=== PATIENT | female | born 1980 | race Hispanic/Latino ===

== ENCOUNTER 2019-08-21 13:34 | Emergency (ER) | payer BC ==
--- OUTSIDE RECORDS SUMMARY | 2019-08-21 13:36 | XMS REPORT ---
:1980 Author Organization [facility] Address [address] [place] [address] Dr. Hinojosa [address] [place] [id number] Care Team Providers Name Role Phone Unavailable Unavailable Unavailable Problems This patient has no known problems. Allergies, Adverse Reactions, Alerts This patient has no known allergies or adverse reactions. Medications This patient has no known medications.
--- OUTSIDE RECORDS SUMMARY | 2019-08-21 13:36 | XMS REPORT | Summary of Care ---
:1980 Author Organization [facility] Address [address] [place] [id number] Care Team Providers Name Role Phone Zoe Suazo Primary Care Provider Reason for Visit Reason Comments Care (Routine) Status Reason Specialty Diagnoses / Referred By Referred To Procedures Contact Contact New Request OB Satellites Diagnoses (normal spontaneous vaginal delivery) [place], Procedures DISCHARGE FOLLOW-UP: [facility] Pippa Peña CNM [address] [place] [address] Encounter Details Date Type Department Care Team Description 02/15/2019 Routine [facility]- Zoe Suazo care and examination of lactating mother (Primary Dx); Visit TAMIR Laurent Status post tubal ligation; [address] [place], [place] [id number] [place], [place] [phone] Allergies Active Allergy Reactions Severity Noted Date Comments No Known Allergies 08/15/2005 documented as of this encounter (statuses as of 02/15/2019) Medications Medication Sig Dispensed Refills Start Date End Date Status SERTraline (ZOLOFT) Take 50 mg by 0 Active 50 mg tablet mouth daily. VIT Take by 0 Active [id number] AC mouth. ORAL ibuprofen 600 mg Take 1 tablet 60 tablet 1 01/25/2019 02/15/2019 Discontinued tabletIndications: by mouth (normal every 6 (six) spontaneous vaginal hours as delivery) needed for Pain (scale 1-3) or Pain (scale 4-6) (Pain). Take with food or milk. HYDROcodone-acetami Take 1 tablet 10 tablet 0 01/25/2019 02/15/2019 Discontinued nophen 5-325 mg by mouth tabletIndications: every 6 (six) Status post tubal hours as ligation needed for Pain (scale 7-10). documented as of this encounter (statuses as of 02/15/2019) Active Problems Problem Noted Date anemia 02/15/2019 Hematuria, unspecified type 11/01/2018 Congenital renal anomaly 11/01/2018 Multiparity 11/01/2018 Status post tubal ligation 11/01/2018 Boil of buttock 10/29/2018 History of abnormal cervical Pap smear 06/12/2018 Overview: Followed by Dr. Horner for all paps, just seen early May for last follow up with normal pap in 05/2018 History of kidney disease 06/12/2018 Overview: H/O renal surgery as a child, reports left kidney with 80% function, recurrent kidney stones, last requiring surgery in 2015, h/o recurrent UTI in previous pregnancies documented as of this encounter (statuses as of 02/15/2019) Resolved Problems Problem Noted Date Resolved Date (normal spontaneous vaginal delivery) 01/25/2019 02/15/2019 Single live 01/25/2019 02/15/2019 39 weeks gestation of 01/24/2019 02/15/2019 Labor and delivery indication for care or intervention 01/24/2019 02/15/2019 Blurry vision 12/14/2018 02/15/2019 Cramping affecting , antepartum 12/14/2018 02/15/2019 Depression affecting in third trimester, 11/21/2018 02/15/2019 antepartum Poor weight gain of , third trimester 11/15/2018 02/15/2019 Depression affecting in second trimester, 11/01/2018 02/15/2019 antepartum AMA (advanced maternal age) multigravida 35+, unspecified 11/01/20182018 trimester Poor weight gain of , second trimester 11/01/2018 02/15/2019 Urinary tract infection in mother during first trimester of 06/13/20182018 Elderly multigravida in first trimester 06/12/2018 11/15/2018 Supervision of high risk , antepartum 06/12/2018 02/15/2019 documented as of this encounter (statuses as of 02/15/2019) Immunizations Name Administration Dates Next Due TDAP (ADACEL) VACCINE 11/15/2018 documented as of this encounter Social History Tobacco Use Types Packs/Day Years Used Date Former Smoker Cigarettes Quit: 2007 Smokeless Tobacco: Never Used Alcohol Use Drinks/Week oz/Week Comments No Sex Assigned at Date Recorded Not on file Job Start Date Occupation Industry Not on file Not on file Not on file Travel History Travel Start Travel End No recent travel history available. documented as of this encounter Last Filed Vital Signs Vital Sign Reading Time Taken Comments Blood Pressure 117/79 02/15/2019 11:08 AM CDT Pulse 101 02/15/2019 11:08 AM CDT Temperature 36.4 C (97.6 F) 02/15/2019 11:08 AM CDT Respiratory Rate 16 02/15/2019 11:08 AM CDT Oxygen Saturation - - Inhaled Oxygen Concentration - - Weight 73.9 kg (163 lb) 02/15/2019 11:08 AM CDT Height 152.4 cm (5') 02/15/2019 11:08 AM CDT Body Mass Index 31.83 02/15/2019 11:08 AM CDT documented in this encounter Patient Instructions Patient InstructionsAnna Bernard RN - 02/15/2019 10:45 AM CDT After a Vaginal After having a baby, your body may be very tired. It can take time to recover from a vaginal delivery. You may stay in the hospital or center from 1 to 4 days.In some cases, you may be able to go home the same day. Right after the delivery Your temperature and blood pressure will be taken until they are stable. A nurse or other healthcareprovider will observe you as you rest. You may have afterbirth pains. These are cramps caused by theuterus shrinking. Sanitary pads are used to soak up the discharge of the uterine lining. To make sure that you arent bleeding too much, the pad will be checked. And the firmness of your uterus will be checked. To do this, a nurse will gently push down on your stomach. If you had anesthesia, youll be watched closely until you can feel and move your toes. If you have perineal pain (pain between the vagina and anus) , an ice pack can help. care While still in the hospital or center, youll learn how to hold and feed your baby. You willalso be given instructions on how to care for your baby. This includes bathing and feeding. Preparing to go home You may be anxious to go home as soon as possible. Before you and your baby go home, a healthcare provider will check to be sure you are healthy enough to take care of your baby and yourself. Youre ready to go home when: You can walk to the bathroom and use the bathroom without help. You can eat solid food and swallow pills (if needed). You have no sign of infection or other health problems, including fever. You have adequate pain control. Your bleeding isn't excessive. You are able to care for your and are emotionally stable. Before leaving the hospital or center, youll be given written instructions for home self-care after vaginal delivery. Be sure to follow these instructions carefully. If you have questions or concerns, talk about them now. If you have stitches You may have received stitches in the skin near your vagina. The stitches might have closed an episiotomy (an incision that enlarges the opening of the vagina) . Or you may have needed stitches to repair torn skin. Either way, your stitches should dissolve within weeks. Until then, you can help reduce discomfort, aid healing, and reduce your risk of infection by keeping the stitches clean. These tips can help: Gently wipe from front to back after you urinate or have a bowel movement. After wiping, spray warm water on the area. Or you can have a sitz bath. This means sitting in a tub with a few inches of water in it. Then pat the area dry or use a hairdryer on a cool setting. Do not use soap or any solution except water on the area. You can take a shower unless told not to. Change sanitary pads at least every [address] cold or heat packs on the area as directed by your healthcare providers or nurses. Keep a thin towel between the pack and your skin. Sit on firm seats so the stitches pull less. follow-up Schedule a follow-up exam with your healthcare provider for about 6 weeks after delivery. During this exam, your uterus and vaginal area will be checked. Contact your healthcare provider if you think you or your baby are having any problems. When to call your healthcare provider Call your healthcare provider right away if you have: A fever of 100.4F (38.0C) or higher Bleeding that needs a new sanitary pad after an hour, or large blood clots Pain in your vagina that gets worse and isn't relieved with medicine Swelling, discharge, or increased pain from vaginal tear or episiotomy Burning, pain, red streaks, or lumpy areas in your breasts that may be accompanied by flu-like symptoms Cracks, blisters, or blood on your nipples Burning or pain when you urinate Nausea or vomiting Dizziness or fainting Feelings of extreme sadness or anxiety, or a feeling that you dont want to be with your baby Belly pain that isnt relieved with medicine Vaginal discharge that has a bad odor No bowel movement for 5 days Painful urination, or inability to control urination Redness, warmth, or pain in the lower leg Chest pain Date Last Reviewed: 06/09/201719996675-1601 [employer]. [address] [place] [address]. All rights reserved. This information is not intended as a substitute for professional medical care. Always follow your healthcare professional's instructions. How to Breastfeed Babies use their lips, gums, and tongue to take milk from the breast (suckle). Your baby is born with an instinct for suckling. But it takes time for you and your baby to learn how to breastfeed. Thereare steps you can take to support your babys natural instincts. Lrkm-ax-azgr If possible, hold your baby bare against your skin (rppy-sr-tutm) just after giving and for a few hours after. You can also continue to do this in the first few weeks after . How often should I feed my baby? Nurse your 8 to 12 times every 24 hours. Feed your baby whenever he or she shows signs of hunger. When your baby is hungry, he or she will appear more awake and might root. Rooting means turning his or her head toward you when you stroke your babys cheek. Your baby might also make a suckingsound or suck on his or her hand. Crying is a late sign of hunger. If your baby is crying, it may behard for him or her to calm down to breastfeed.Infants will often eat at irregular times. But feedings will usually become more regular over time. Sometimes your baby might eat several times in a row(cluster feeding) and then take a break. Ifyour baby seems sleepy or too fussy to nurse,undress him or her and place your baby bare against your skin.Don't keep your baby swaddled tightly. This may keep him or her too sleepy to feed. Change which breast you offer first with each feeding. For example, if you started nursing on the right side with the last feeding, offer the left side first with this feeding. Always offer the other breast after your baby stops nursing on the first side. Ask your baby's healthcare provider about waking the baby for feeding. You may need to wake your baby and offer to nurse if it has been 4 hours since your baby 's last feeding. Offering your breast Hold your breast with your thumb on top and fingers underneathin a loose supervisor modern languages. Gentlystrokeyour nippleon your babys lower lip.When you see your baby open his or her mouth wide, quickly bring the baby to your breast. Latching on The way your baby connects with the breast is called the latch. When your baby attaches, you should see more of the darker skin around the nipple (areola) above the baby's upper lip than below the lower lip. The front of your baby's entire body should be touching you. Your baby's nose and chin should be against the breast. Your baby's cheeks should be full and not sinking inward. You should be able to see your baby's lips. They should be slightly flared outward. As your baby suckles, his or her jaw should open wide. It should not be "munching" as if chewing. Listen for swallowing. It should not hurt when your baby latches on and suckles. If it does, try releasing the latch and starting over. Releasing the latch Let your baby nurse until satisfied. In most cases, when your baby is finished nursing, he or she will let go on his or her own. This tells you that your baby is done feeding on that breast. But you may need to release the latch sooner if you feel pain or for some other reason. To do this, slip your finger into the corner of your baby's mouth. You should feel the suction break. Only when the seal is broken, move your baby off your breast. Don't take the baby off your breast until you've felt a decrease in suction. Burping your baby Breastfed babies don't need to burp as much as bottle-fed babies. Bottles flow faster, and babies tend to swallow more air.Tryto burp your baby after each breast: Hold the baby at your upper chest or slightly over your shoulder. Gently rub or pat the babys back. Or hold the baby sitting up on your lap. Support your baby's head and chest in front and in back.Slowly rock your baby back and forth. Dont worry if your baby doesn't burp. He or she may not need to. Date Last Reviewed: 09/07/201619998514-9026 [employer]. [address] [place] [address]. All rights reserved. This information is not intended as a substitute for professional medical care. Always follow your healthcare professional's instructions. Understanding Depression Youve just had a baby. You expected to be excited and happy. But instead you find yourself cryingfor no reason. You may have trouble coping with your daily tasks. You feel sad, tired, and hopeless most of the time. You may even feel ashamed or guilty. But what youre going through is not your fault and you can feel better. Talk to your healthcare provider. He or she can help. What is depression? Depression is a mood disorder that affects the way you think and feel. The most common symptom is a feeling of deep sadness. You may also feel as if you just cant cope with life. Other symptoms include: Gaining or losing a lot of weight Sleeping too much or too little Feeling tired all the time Feeling restless Crying a lot Having too little or too much appetite. Withdrawing from friends and family Having headaches, aches and pains, or stomach problems that won't go away. Fears of harming your baby Lack of interest in your baby Feeling worthless or guilty No longer finding pleasure in things you used to Having trouble thinking clearly or making decisions Thinking about or suicide Depression after childbirth You may be weepy and tired right after giving . These feelings are normal. Theyre sometimes called the baby blues. These blues go away after 1 to 2 weeks. However, (meaning after ) depression lasts much longer and is more severe than the "baby blues." It can make you feel sad and hopeless. You may also fear that your baby will be harmed and worry about being a bad mother. What causes depression? The exact cause of depression is unknown. Changes in brain chemistry or structure are believed to play a big role in depression.It may be due to changes in your hormones during and after childbirth. You may also be tired from caring for your baby and adjusting to being a mother. All thesefactors may make you feel depressed. In some cases, your genes may also play a role. Depression can be treated There are many ways to treat depression. Talking to your healthcare provider is the firststep toward feeling better. When to call your healthcare provider Call your healthcare provider if you: Cry for no clear reason Have trouble sleeping, eating, and making choices Questions whether you can handle caring for a baby Have intense feelings of sadness, anxiety, or despair that prevent you from being able to do yourdaily tasks Resources National [place] of Mental Ytwmxs404-546-2699nmq.nimh.nih.gov National [place] on Mental Oxdeomd012-869-2437hjw.thelma.org Mental Health Efuaedo136-225-6989cfd.[facility].org National Suicide Dixybrz209-686-8404 (800-SUICIDE) Date Last Reviewed: 01/07/201719991289-1164 [employer]. [address] [place] [address]. All rights reserved. This information is not intended as a substitute for professional medical care. Always follow your healthcare professional's instructions. How to Bottle-Feed Newborns need nutrition and plenty of loving2 things you can supply while bottle-feeding. Both breastmilk and formula can be given to your baby in a bottle. Be sure to place the nipple on the tongue and well into your baby's mouth. Safety tip:Never heat breastmilk or formula in a microwave. This can result in uneven heating. Thehot formulamight burn your baby's mouth. Instead, warm the bottle by putting it in a bowl of warm (not hot) water. Using hot water to heat formula or breastmilk can burn your baby's mouth or throat. Test the temperature of theformulaby dripping a few dropson your wrist. Make sure it is a warmtemperature before giving it to your baby. Bottle care No matter if you use breastmilk or formula, the bottles, nipples, and tools you use to get the formula ready must be clean. Below are suggestions for bottle care, but talk with your healthcare provider about how to care for bottles: Wash your hands before you mix formula, fill a bottle, or offer a bottle. Do this every time. If soap and water aren't available, use an alcohol-based hand white work cleaner. Clean glass bottles and nipples in the model photographers'. Use the hot water setting with a hot drying cycle. Or wash the bottles and nipples with hot, soapy water. Be sure to rinse both completely. Boil them for 5 minutes and cool them. If you use plastic bottles with disposable liners, you will still need to make sure the bottles and nipples are clean. Store clean, unused bottles and nipples with the nipple end facing into the bottle (inverted). Put the bottle caps on the bottles to keep the nipples clean. Facts on formula Baby formulais made from cows milk or soybeans.Formula made from cows milk is more commonly used. But you may need to use formula made from soybeans. Your babys healthcare provider may tell you to use soybean-based formula if your family has a history ofallergiesor your baby has certain health conditions. All formula used should include iron. Telha-sp-szze formula Hknlp-ta-rfez formula is the easiest to use, but it also costs the most.Brand names cost more thanstore-brand formulas because these companies spend more money on advertising. Pour the desired amount of xkayw-qt-wtje formula into the baby's clean bottle. Once you open the container of formula, it must be stored in the refrigerator. It can only be stored for 24 hours. If not refrigerated, the formula is only safe at room temperature for 1 hour. After that, it mustbe thrown out. You can fill bottles with the formula up to 24 hours ahead of time.You must keep them refrigerated untilyou use them. If your baby does not finish drinking a bottle within 2 hours, throw away the unfinished formula. Ask your healthcare provider how much formula to offer your baby at each feeding. Concentrated liquid formulas Concentrated liquid formulas need to be mixed with water before using. Follow thedirectionson the canclosely. Using too much or too little water may harm your baby.Follow these tips: Use water that has been boiled and then cooled. Pour the whole can of concentrated liquid formula into a clean pitcher. Fill the can with water to the top and add it to the pitcher. Mix well. Pour the desired amount of formula into your baby's clean bottle. Store the pitcher of mixed formula in the refrigerator. Keep it for only 24 hours. If not refrigerated, the formula is only safe at room temperature for 1 hour. After that, it must be thrown out. Ask your healthcare provider how much formula to offer your baby at each feeding. Concentrated powder formulas Powdered formulas must be mixed with water before using. Liquid formulas have no germs (sterile). But powdered formula can get germs (bacteria) in it when you make it or when you store it. Follow thesetips to protect your baby from getting sick from these germs: Concentrated powder formulas need to be mixed with clean, boiled water before using. Wash and dry the top of the formula can before you open it. Make sure the can packaging inspector, spoons, scoops, and other tools you use to make the formula are clean. Use very hot water to mix with the formula powder. This means water that is 158F (70C). Dont mix the formula with water until right before you are going to feed your baby. Add the right amount of hot water to the bottle. Then add the right amount of powdered formula. Its important to add the water to the first. Adding the formula first may make it too strong and cause diarrhea. Mix the water and formula well. Test the temperature of the mixed formula by shaking a few drops on your wrist. If it is too hot,cool it by running the bottle under cool tap water. Or put the bottle in an ice bath. Make sure the cooling water does not get into the bottle or on the nipple. If you dont plan to use the prepared formula right away, put it in the refrigerator and use itwithin 24 hours. It is important to keep the dry powder in the formula can clean to prevent bacteria from growing. Ask your healthcare provider how much formula to offer your baby at each feeding. Holding baby and bottle To hold your baby and feed him or her with a bottle, follow these tips: Cradle your baby in your arm, holding your babys head slightly higher thanhis or her bottom. Using the correct position can lower the chance that your baby will choke. Stroke your babyslower lip. When your babys mouth opens, place the nipple on the tongueand feel him or her pull the nipple into the mouth. Tip the bottle so the nipple fills with milk. Forsafety'ssake, never prop the bottle.Your baby can choke if you leave him or her alone with a propped bottle. Feeding your infant can be a time of bonding and building trust. Hold your baby close to your body, make eye contact, and talk to your baby. Don't let your baby fall asleep while sucking on a bottle. This can lead to tooth decay when he or she is older. If your baby seems hungry but isn't eating well, you can try a different shaped nipple. You might also check the nipple opening. Some babies prefer a faster flow of milk. They can get frustrated when the flow is too slow. If your baby is gagging and choking, you might need a nipple with a smaller hole. The smaller hole slows the flow. [place] with bottle nipples. Let your baby choose which bottle nipple is best for him or her. Burping your baby It is easy for babies to swallow air while bottle-feeding. Burping helps your baby get rid of that air.Tips on burping your baby include: Burp your babywhen he or she acts restless, tries to turn away from the nipple, or slows his orher sucking.This is usually after eating every 1/2 to 1 ounce of formula and when he or she is finished feeding. Your baby can be burped sitting up while you hold the babys jaw, lying face down across your lap, oruprightwith his or her belly against your shoulder. Feeding cues Don't wait for your baby to cry before feeding. Crying is too late of a sign that your baby is ready to eat. Your baby is ready to feed when your baby flutters his or her eyes and moves his or her hands to the mouth as he or she wakes up. Don't force your baby to finish the bottle. This can lead to obesity. Respect cues that he or she is finished. These include letting go of the bottle, turning his or her head away, looking sleepy, or stopping feeding. Offer a pacifier if your baby acts like he or she wants to suckle after finishing the amount of formula your healthcare provider recommended. Babies enjoy sucking. But bottle-fed babies may feed so fast that they dont get enough suckling time. Date Last Reviewed: 09/07/201619995823-6242 [employer]. [address] [place] [address], [place] [address]. All rights reserved. This information is not intended as a substitute for professional medical care. Always follow your healthcare professional's instructions. documented in this encounter Progress Notes Zoe Suazo FNP - 02/15/2019 10:45 AM CDT Chief complaint: Chief Complaint Patient presents with Care Shamika Smith is a 38 year old, , /White female. Patient's last menstrual period was 05/03/2018 (exact date). Patient presents for her visit. She is 3 week(s) status-post a normal vaginal delivery.. Since discharge, lochia has decreased. Lochia described as normal and physiologic. She is not . She reports no complaints in the bilateral breast(s). Patient denies pain. Patient has not attempted self treatment. She reports that she currently engages in sexual activity and has had partners who are Male. She reports using the following method of control/protection: BTL. Perineal repair: none Infants course complicated? no The patients course was without complication. The patients hospital course was without complication. Post- hemoglobin before leaving hospital: HGB Date Value Ref Range Status 01/26/2019 9.9 (L) 11.6 - 15.0 g/* Final 11/10/2010 14.2 11.5 - 15.5 G/* Final complications: none Patient lives with with baby and with older child(juan). OB History T2 L4 SAB0 TAB1 Ectopic0 Multiple0 Live Births4 Name of Baby 1: Not recorded Date: 1996 GA: 8w0d Delivery: Not recorded Apgar1: Not recorded Apgar5: Not recorded Living: Not recorded Name of Baby 2: Not recorded Date: 02/02/04 GA: 40w0d Delivery: Normal Spontaneous Vaginal Apgar1: Not recorded Apgar5: Not recorded Living: Living Name of Baby 3: Not recorded Date: 03/22/06 GA: 40w0d Delivery: Normal Spontaneous Vaginal Apgar1: Not recorded Apgar5: Not recorded Living: Living Name of Baby 4: Not recorded Date: 06/09/10 GA: 40w0d Delivery: Normal Spontaneous Vaginal Apgar1: Not recorded Apgar5: Not recorded Living: Living Name of Baby 5: ALVAREZ SMITH Date: 01/24/19 GA: 39w2d Delivery: Normal Spontaneous Vaginal Apgar1: 9 Apgar5: 9 Living: Living Depression Scale: I have been able to laugh and see the funny side of things: As much as I always could I have looked forward with enjoyment to things: As much as I ever did I have blamed myself unnecessarily when things went wrong: No, never I have been anxious or worried for no good reason: No, not at all I have felt scared or panicky for no good reason: No, not at all Things have been getting on top of me: No, I have been coping as well as ever I have been so unhappy that I have had difficulty sleeping: Not at all I have felt sad or miserable: No, not at all I have been so unhappy that I have been crying: No, never The thought of harming myself has occurred to me: Never Total: 0 Immunization History Administered Date(s) Administered TDAP (ADACEL) VACCINE 11/15/2018 Pended Date(s) Pended Rho (d) Immune Globulin 01/25/2019 Histories OB History Para Term AB Living 5 4 2 1 4 SAB TAB Ectopic Multiple Live Births 1 0 4 # Outcome Date GA Lbr William/2nd Weight Sex Delivery Anes PTL Lv 5 Term 01/24/19 39w2d 7 lb 1.6 oz (3.22 kg) M NORMAL SPONT None N PIERO 4 Para 06/09/10 40w0d 8 lb 2 oz (3.685 kg) F NORMAL SPONT IV narcotic Y PIERO 3 Term 03/22/06 40w0d 7 lb 9 oz (3.43 kg) M NORMAL SPONT IV narcotic N PIERO 2 Para 02/02/04 40w0d 7 lb (3.175 kg) M NORMAL SPONT IV narcotic N PIERO 1 TAB 1996 8w0d Past Medical History: Diagnosis Date Anxiety Depression 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 Horner anemia 02/15/2019 Family History Problem Relation Age of Onset Asthma Mother Depression Mother Depression Father Diabetes Father Psychiatry Father Breast Cancer Paternal Grandmother Family Status Relation Name Status Mo (Not Specified) Fa (Not Specified) PGMo (Not Specified) Past Surgical History: Procedure Laterality Date ERCP,W/DESTRUCTION,LITHOTRIPSY,STONE 2015 OVARIAN CYSTECTOMY 2016 HI ANESTH,KIDNEY,PROX URETER SURG Left 2016 blockage from stone/infection/surgery to relieve infection TUBAL LIGATION N/A 01/25/2019 Surgeon: Nini Pulido MD; Location: Labor and Delivery - [place] Social History Socioeconomic History Marital status: Spouse name: Not on file Number of children: Not on file Years of education: Not on file Highest education level: Not on file Occupational History Not on file Social Needs Financial resource strain: Not on file Food insecurity: Worry: Not on file Inability: Not on file Transportation needs: Medical: Not on file Non-medical: Not on file Tobacco Use Smoking status: Former Smoker Types: Cigarettes Last attempt to quit: 2007 Years since quittin.6 Smokeless tobacco: Never Used Substance and Sexual Activity Alcohol use: No Drug use: No Sexual activity: Yes Partners: Male control/protection: None Lifestyle Physical activity: Days per week: Not on file Minutes per session: Not on file Stress: Not on file Relationships Social connections: Talks on phone: Not on file Gets together: Not on file Attends taoist service: Not on file Active member of club or organization: Not on file Attends meetings of clubs or organizations: Not on file Relationship status: Not on file Intimate partner violence: Fear of current or ex partner: Not on file Emotionally abused: Not on file Physically abused: Not on file Forced sexual activity: Not on file Other Topics Concern Not on file Social History Narrative Currently feels safe at home No cats Social History Substance and Sexual Activity Sexual Activity Yes Partners: Male control/protection: None Labs No new labs, I have reviewed the patient's labs. and Admission on 01/24/2019, Discharged on 01/26/2019 Component Date Value HBsAg 01/24/2019 Negative HBsAg Semi-Quantitative 01/24/2019 0.18 Syphilis IgG/IgM 01/24/2019 Non-reactive ABO & RH 01/24/2019 A POSITIVE IAT 01/24/2019 Negative VENOUS BASE EXCESS, CORD 01/24/2019 -3.6 VENOUS PH, CORD 01/24/2019 7.34 VENOUS PC02, CORD 01/24/2019 42 VENOUS PO2, CORD 01/24/2019 25 VENOUS BICARBONATE, CORD 01/24/2019 22 BASE EXCESS, CORD 01/24/2019 -3.5 AC PH, CORD (BEAKER) 01/24/2019 7.30 PC02, CORD 01/24/2019 48 PO2, CORD 01/24/2019 21 BICARBONATE, CORD 01/24/2019 23 Case Report 01/25/2019 Value:Surgical Pathology Case: [id number] Authorizing Provider: Nini Pulido MD Collected: 2018 0211 Ordering Location: Labor and Delivery ([facility]) Received: 2018 0832 Pathologist: Giovany Smith MD Specimens: A) - FALLOPIAN TUBE, LEFT B) - FALLOPIAN TUBE, RIGHT Final Diagnosis 01/25/2019 Value:This result contains rich text formatting which cannot be displayed here. Clinical Information 01/25/2019 Value: s/p -MPDPS Gross Description 01/25/2019 Value:This result contains rich text formatting which cannot be displayed here. WBC 01/26/2019 12.42* RBC 01/26/2019 3.45* HGB 01/26/2019 9.9* HCT 01/26/2019 31.5* MCV 01/26/2019 91.3 MCH 01/26/2019 28.7 MCHC 01/26/2019 31.4* RDW-SD 01/26/2019 46.2 RDW-CV 01/26/2019 14.1 PLT 01/26/2019 167 MPV 01/26/2019 12.3 NRBC/100 WBC 01/26/2019 0.0 NRBC x10^3 01/26/2019 <0.01 GRAN MAT (NEUT) % 01/26/2019 59.5 IMM GRAN % 01/26/2019 0.50 LYMPH % 01/26/2019 32.9 MONO % 01/26/2019 5.3 EOS % 01/26/2019 1.4 BASO % 01/26/2019 0.4 GRAN MAT x10^3(ANC) 01/26/2019 7.38* IMM GRAN x10^3 01/26/2019 0.06 LYMPH x10^3 01/26/2019 4.09* MONO x10^3 01/26/2019 0.66 EOS x10^3 01/26/2019 0.18 BASO x10^3 01/26/2019 0.05 Routine Visit on 01/16/2019 Component Date Value POCT U SP GRAV 01/16/2019 . POCT PH U 01/16/2019 . POCT U LEUK EST 01/16/2019 . POCT U NIT 01/16/2019 . POCT U PROT 01/16/2019 trace POCT U GLU 01/16/2019 neg POCT U KETONE 01/16/2019 . POCT U UROBILI 01/16/2019 . POCT U BILI 01/16/2019 . POCT U BLD 01/16/2019 . Radiology No new radiology. Allergies Shamika is allergic to nka [no known allergies]. Medications Shamika has a current medication list which includes the following prescription(s) : vit 108/iron/folic ac and sertraline. Review of Systems Constitutional: Negative for appetite change, fatigue and fever. Eyes: Negative for visual disturbance. Respiratory: Negative. Cardiovascular: Negative for palpitations and leg swelling. Gastrointestinal: Negative for abdominal pain, constipation, diarrhea, nausea and vomiting. Genitourinary: Negative. Negative for dysuria, vaginal bleeding, vaginal discharge and pelvic pain. Musculoskeletal: Negative. Skin: Negative for rash. Neurological: Negative for dizziness, light-headedness and headaches. Psychiatric/Behavioral: Negative. BP 117/79 (BP Location: Right arm, Patient Position: Sitting, BP CUFF SIZE: Adult Small) | Pulse 101 | Temp 36.4 C (97.6 F) (Oral) | Resp 16 | Ht 5 ' (1.524 m) | Wt 163 lb (73.9 kg) | LMP 05/03/2018 (Exact Date) | BMI 31.83 kg/m Pregravid BMI: 35.2 Physical Exam Vitals reviewed. Constitutional: She is oriented to person, place, and time. She appears well- developed and well-nourished. Cardiovascular: No peripheral edema present. Pulmonary/Chest: Normal inspiratory effort. Abdominal: Abdomen is soft. Neuro/Psychiatric: She has a normal mood and affect. She is oriented to person, place, and time. Skin: Skin normal. External genitalia: Repaired lacerations healing well, no s/s infection or dehiscence Vagina: Scant blood Uterus: Normal involution Assessment/Plan 1. care and examination of lactating mother Denies concerns On sertraline, reports depression symptoms stable, denies SI/HI 2. Status post tubal ligation Satisfied with method 3. anemia Continue PNV Plan repeat CBC at next visit Return to clinic in 3 weeks. Reviewed patient instructions and provided printed copy. This visit did not involve counseling and coordination that comprised more than 50% of the visit time. Anna Milan RN - 02/15/2019 10:45 AM CDTPt in clinic today for 3 wk pp visit. 1) Delivery method Vaginal 2) Patient delivered on 01/24/2019 at [facility] 3) Patient is currently Bottlefeeding 4) Desired BCM: BTL at time of delivery 5) Patient denies pp depression 6) Minimal bleeding, denies fever and or pelvic pain. Patient denies martínez BERNARD RN 02/15/2019 11:07 AM documented in this encounter Plan of Treatment Date Type Specialty Care Team Description 03/07/2019 Office Visit OB [facility] Zoe Suazo FNP [address] [place] [address] [phone] Health Maintenance Due Date Last Done Comments HgA1C 1982 PNEUMOCOCCAL 0-64 YEARS COMBINED 1987 SERIES (1 of 1 - PPSV23) EYE EXAM 1991 LDL-C 1991 URINE MICROALBUMIN 1991 FOOT EXAM 1999 PAP SMEAR 10/06/2014 10/07/2011, 07/19/2010, 06/15/2009, Additional history exists INFLUENZA VACCINE 03/10/2019 CREATININE (SERUM) 06/22/2019 06/22/2018, 08/14/2005 DTaP,Tdap,and Td Vaccines (2 - Td) 11/15/2028 11/15/2018 documented as of this encounter Results Not on filedocumented in this encounter Visit Diagnoses Diagnosis care and examination of lactating mother - Primary Status post tubal ligation Tubal ligation status anemia Anemia, documented in this encounter Insurance Payer Benefit Plan / Subscriber ID Effective Phone Address Type Group Dates [facility] [id number] 2017-Hannah [phone]PO/POS [phone] [place] [address] [facility] xxxxxxxxx 2018-Pres Medicaid [employer] - MANAGED MEDICAID documented as of this encounter Advance Directives Name Relationship Healthcare Agent Communication Relationship Sheng Smith Spouse Primary healthcare agent [email or web address]
--- OUTSIDE RECORDS SUMMARY | 2019-08-21 13:37 | XMS REPORT | Summary of Care ---
:1980 Author Organization [facility] Address [address] [place] [address] Care Team Providers Name Role Phone Zoe Suazo [facility] Primary Care Provider Reason for Visit Reason Comments Care 6Wk WWE Well Woman Exam Encounter Details Date Type Department Care Team Description 03/07/[address] [facility]- Zoe Suazo, Well woman exam (Primary Dx); [facility] anemia; [address] Status post tubal ligation; [place], [place] Omar A Depression, unspecified depression type; [id number] [place] [address] BMI 33.0-33.9,adult [phone] Allergies Active Allergy Reactions Severity Noted Date Comments No Known Allergies 08/15/2005 documented as of this encounter (statuses as of 03/07/2019) Medications Medication Sig Dispensed Refills Start Date End Date Status SERTraline (ZOLOFT) Take 50 mg by 0 Active 50 mg tablet mouth daily. VIT Take by 0 03/07/2019 Discontinued [id number] AC mouth. ORAL documented as of this encounter (statuses as of 03/07/2019) Active Problems Problem Noted Date anemia 02/15/2019 [...] as of this encounter (statuses as of 03/07/2019) Resolved Problems Problem Noted Date Resolved Date [...] as of this encounter (statuses as of 03/07/2019) Immunizations Name Administration Dates Next Due TDAP [...] Sign Reading Time Taken Comments Blood Pressure 130/89 03/07/2019 1:19 PM CDT Pulse 104 03/07/2019 1:19 PM CDT Temperature 36.8 C (98.2 F) 03/07/2019 1:19 PM CDT Respiratory Rate 16 03/07/2019 1:19 PM CDT Oxygen Saturation - - Inhaled Oxygen Concentration - - Weight 78.6 kg (173 lb 6 oz) 03/07/2019 1:19 PM CDT Height 152.4 cm (5') 03/07/2019 1:19 PM CDT Body Mass Index 33.86 03/07/2019 1:19 PM CDT documented in this encounter Patient Instructions Patient InstructionsLaura Garza LVN - 03/07/2019 1:00 PM CDT Clinical Breast Exam Many health organizations recommend a yearly clinical breast exam. This exam may be done by a bar staff, family healthcare provider, nurse practitioner, nurse manager clinical, or specially trained nurse. Yearly breast exams help tomake surethat breast conditions are found early. Your healthcare providers role A healthcare professional knows the tests and follow-up care needed if a problem is found. Your clinical exam is also a great time to ask questions about breast self-exams. You can find out if yourechecking your breasts in the best way. Or you may want to ask how , breast implants, or breast reduction surgery affect the way you should check your breasts. Diagnostic tests If a clinical exam reveals a breast change, you may have other tests to find out more. These tests may include: Mammography. A low-dose X-ray of your breast tissue. Ultrasound. An imaging test that uses sound waves to create images of your breast. Biopsy. A small amount of breast tissue is removed by needle or by a cut ( incision). The tissue is then checked under a microscope. Guidelines for having clinical breast exams The [place] [employer] recommends that starting at age 29, you should have a clinical breast exam every 1 to 3 years. After age 40, have a clinical breast exam each year. If youre at higher risk for breast cancer, you may need exams more often. Risk factors for breast cancer may include: Being over 50 or postmenopausal Having a family history of breast cancer Having the BRCA1 or BRCA2 gene mutation or certain other gene mutations Having more menstrual periods due to starting menstruation early(before age 12) or having a late menopause (after age 55) Having no pregnancies Having a first after age 30 Being obese Having a history of radiation treatment to your chest area Exposure to CAL during your mother's Not being active Drinking too much alcohol Having dense breast tissue Taking hormone therapy after menopause Other health organizations have different recommendations. Talk with your healthcare provider about what is best for you. Date Last Reviewed: 02/07/201719994200-9443 [employer]. [address] [place] [address]. All rights reserved. This information is not intended as a substitute for professional medical care. Always follow your healthcare professional's instructions. Breast Health: Breast Self-Awareness What is breast self-awareness? Breast self-awareness is knowing how your breasts normally look and feel. Your breasts change as yougo through different stages of your life. So its important to learn what is normal for your breasts. Breast self-awareness helps you notice any changes in your breasts right away. Report any changesto your healthcare provider. Why is breast self-awareness important? Many experts now say that women should focus on breast self-awareness instead of doing a breast self-examination (BSE). These experts include the [place] [employer], the U.S. Preventive Services Task Force, and the [place] [employer]. Some experts even advise notteaching women to do a BSE. Thats because research hasnt shown a clear benefit to doing BSEs. Breast self-awareness is different than a BSE. Breast self-awareness isnt about following a certain method and schedule. Its about knowing what's normal for your breasts. That way you can notice even small changes right away. If you see any changes, report them to your healthcare provider. Changes to look for Call your healthcare provider if you find any changes in your breasts that concern you. These changes may include: A lump Nipple discharge other than breastmilk, especially a bloody discharge Swelling A change in size or shape Skin irritation, such as redness, thickening, or dimpling of the skin Swollen lymph nodes in the armpit Nipple problems, such as pain or redness If you find a lump Contact your provider if you find lumpiness in one breast, feel something different in the tissue, or feel a definite lump. Sometimes lumpiness may be due to menstrual changes. But there may be reason for concern. Your provider may want to see you right away if you have: Nipple discharge that is bloody Skin changes on your breast, such as dimpling or puckering Its normal to be upset if you find a lump. But its important to contact your provider right away. Remember that most breast lumps are benign. This means they are not cancer. Date Last Reviewed: 02/07/201719994811-6346 [employer]. [address] [place] [address], [place] [address]. All rights reserved. This information is not intended as a substitute for professional medical care. Always follow your healthcare professional's instructions. Prevention Guidelines,Women Ages 18 to 39 Screening tests and vaccines are an important part of managing your health. A screening test is doneto find possible disorders or diseases in people who don' t have any symptoms. The goal is to find a disease early so lifestyle changes can be made and you can be watched more closely to reduce the riskof disease, or to detect it early enough to treat it most effectively. Screening tests are not considered diagnostic, but are used to determine if more testing is needed. Health counseling is essential, too. Below are guidelines for these, for women ages 18 to 39. Talk with your healthcare provider tomake sure youre up-to- date on what you need. Screening Who needs it How often Alcohol misuse All women in this age group At routine exams Blood pressure All women in this age group Yearly checkup if your blood pressure is normal Normal blood pressure is less than 120/80 mm Hg If your blood pressure reading is higher than normal, follow the advice of your healthcare provider Breast cancer All women in this age group should talk with their healthcare providers about the needfor clinical breast exams (CBE)1 Clinical breast exam every 3 years1 Cervical cancer Women ages 21 and older Women between ages 21 and 29 should have a Pap test every 3 years; women between ages 30 and 65 are advised to have a Pap test plus an HPV test every 5 years Chlamydia Sexually active women ages 25 and younger, and women at increased risk for infection (suchas having multiple sex partners) Every year if you're at risk or have symptoms Depression All women in this age group At routine exams Type 2 diabetes, prediabetes All women with no symptoms who are overweight or obese and have 1 or more other risk factors for diabetes At least every 3 years. Also, testing for diabetes during after the 24th week. Type 2 diabetes, prediabetes All women diagnosed with gestational diabetes Lifelong testing every 3 years Type 2 diabetes All women with prediabetes Every year Gonorrhea Sexually active women at increased risk for infection At routine exams Hepatitis C Anyone at increased risk At routine exams HIV All women should be tested at least once for HIV between the ages of 13 and 64 At routine exams.Those with risk factors for HIV should be tested at least annually. Obesity All women in this age group At routine exams Syphilis Women at increased risk for infection should talk with their healthcare provider At routineexams Tuberculosis Women at increased risk for infection should talk with their healthcare provider Ask your healthcare provider Vision All women in this age group At least 1 complete exam in your 20s, and 2 in your 30s Vaccine2 Who needs it How often Chickenpox (varicella) All women in this age group who have no record of this infection or vaccine 2doses; the second dose should be given 4 to 8 weeks after the first dose Hepatitis A Women at increased risk for infection should talk with their healthcare provider 2 dosesgiven at least 6 months apart Hepatitis B Women at increased risk for infection should talk with their healthcare provider 3 dosesover 6 months; second dose should be given 1 month after the first dose; the third dose should be given at least 2 months after the second dose and at least 4 months after the first dose Haemophilus influenzaeType B (HIB) Women at increased risk for infection should talk with their healthcare provider 1 to 3 doses Human papillomavirus (HPV) All women in this age group up to age 26 3 doses; the second dose should be given 1 to 2 months after the first dose and the third dose given 6 months after the first dose Influenza (flu) All women in this age group Once a year Measles, mumps, rubella (MMR) All women in this age group who have no record of these infections or vaccines 1 or 2 doses Meningococcal Women at increased risk for infection should talk with their healthcare provider 1 or more doses Pneumococcal conjugate vaccine (PCV13)and pneumococcal polysaccharide vaccine(PPSV23) Women at increased risk for infection should talk with their healthcare provider PCV13: 1 dose ages 19 to 65 (protects against 13 types of pneumococcal bacteria) PPSV23: 1 to2 doses through age 64, or 1 dose at 65 or older (protects against 23 types of pneumococcal bacteria) Tetanus/diphtheria/pertussis (Td/Tdap) booster All women in this age group Td every 10 years, or a one-time dose of Tdap instead of a Td booster after age 18 , then Td every 10 years Counseling Who needs it How often BRCA gene mutation testing for breast and ovarian cancer susceptibility Women with increased risk for having gene mutation When your risk is known Breast cancer and chemoprevention Women at high risk for breast cancer When your risk is known Diet and exercise Women who are overweight or obese When diagnosed, and then at routine exams Domestic violence Women at the age in which they are able to have children At routine exams Sexually transmitted infection prevention Women who are sexually active At routine exams Skin cancer Prevention of skin cancer in fair-skinned adults At routine exams Use of tobacco and the health effects it can cause All women in this age group Every visit 1 According to the ACS, women ages 20 to 39 years should have a clinical breast exam (CBE) as part of their routine health exam every 3 years. Breast self- exams are an option for women starting in their 20s.But the USPSTF does not recommend CBE. Date Last Reviewed: 04/09/201719993604-4628 [employer]. [address] [place] [address]. All rights reserved. This information is not intended as a substitute for professional medical care. Always follow your healthcare professional's instructions. Understanding STDs When it comes to sex, nothing is risk-free. Any sexual contact with the penis, vagina, anus, or mouth can spread a sexually transmitted disease (STD). The only sure way to prevent STDs is abstinence (not having sex). But there are ways to make sex safer. Use a latex condom each time you have sex. And choose your partner wisely. Use condoms for safer sex If you have sex, latex condoms provide the best protection against STDs. Latex condoms stop the exchange of body fluids that carry certain STDs. They also limit contact with affected skin. Be aware though, a condom doesnt cover all skin. So, affected skin that is not covered can still transfer disease. But you re safer with a condom than without one. Use a condom even if you use other control. While control methods like the pill or IUD help prevent , they do not protect against STDs. Choose the right condom Condoms made of latex prevent disease best. If youre allergic to latex, use polyurethane condoms instead. Male condoms fit over the penis. Female condoms line the vagina. Before buying a condom, read the label to be sure it prevents disease. Some novelty condoms dont. The right lubricant helps Buy lubricated condoms or use lubricant. This provides greater comfort and reduces the risk of condom breakage. Use only water-based lubricants. Dont use oil, lotion, or petroleum jelly. They can weaken the condom, causing breakage. Also, you may want to choose lubricants without nonoxynol-9. Its now known that this spermicide does not prevent disease and may cause irritation. Use condoms correctly For condoms to work, they must be used the right way. Keep these tips in mind: Use a new latex condom each time you have sex. Slip the condom on the penis before any contact ismade. When ready to withdraw, hold the rim of the condom as the penis pulls out. This prevents the condom from slipping off. Check the expiration date before using a condom. Dont store condoms in places that can get hot, such as a car or a wallet that is carried in a back pocket. Get to know your partner Safer sex is a process. It involves getting to know your partner and making informed choices. Ask each other how many partners you have had in the past, and how many you have now. Find out if either ofyou has an STD. If you decide to have sex, use a condom each time. Dont stop using condoms unlessyoure sure neither of you has other partners and youve both been tested to confirm you donthave STDs. Then stay free of disease by having sex only with each other (monogamy). Keep your cool Dont let alcohol or drugs cloud your judgment. They could lead you to have sex with someone you wouldnt have chosen if you were sober. Or, you might forget to use a condom. If you do plan to havesex, keep a latex condom with you. Dont wait until youre in the heat of passion to try to findone. Consider abstinence The only way to be sure you wont get an STD is to abstain from sex. Abstinence is a choice that many people make at some point in their lives. Maybe you want to wait until you are sure youre ready before you have sex. Maybe youd like a break from the responsibilities of sex for a while. Or maybe you just want to know your partner better before taking the next step. Abstinence is a choice youcan make now to protect your future. Date Last Reviewed: 06/09/201619992465-8221 [employer]. [address] [place] [address], [place] [address]. All rights reserved. This information is not intended as a substitute for professional medical care. Always follow your healthcare professional's instructions. Understanding HIV and AIDS If you know how HIV (human immunodeficiency virus) can get into your body and what happens once its there, youll be better prepared to protect yourself or others against this virus. A person withHIV can look and feel perfectly healthy. But that person can give HIV to others as soon as he or sheis infected with the virus. Note: Having unsafe or unprotected sex or sharing needles put you at risk for HIV. Talk with your healthcare provider about ways to protect yourself or a loved one from getting HIV. How HIV enters the body HIV is carried in semen, vaginal fluid, blood, and breast milk. During sex, HIV can enter the body through the fragile tissue that lines the vagina, penis, anus,and mouth. During drug use, tattooing, or body piercing, the virus can enter the bloodstream through a shared needle. A mother who has HIV can infect her child during childbirth and through . How HIV infection progresses After HIV enters the body, it attacks the immune system in stages. A person with HIV can infect others once the virus enters the bloodstream. HIV with no symptoms. A person with HIV may have no symptoms for years. A positive blood test for HIV antibodies 6 weeks to 6 months after HIV enters the body may be the only sign of infection. HIV with symptoms.Some people develop an illness similar to mononucleosis (or "mono") 2 to 4 weeksafter the virus enters the body. Symptoms may include swollen lymph glands, chills, fever, night sweats, weakness, weight loss, skin rashes, mouth ulcers, or sore throat. Symptoms may be mild at first and then slowly go away. In a very few individuals, symptoms may get progressively worse and last forlonger and longer periods. AIDS. AIDS is the last stage of HIV infection. Diseases and cancers begin to overcome the body. It is these diseases, not the virus itself, that cause . HIV may also attack the brain and nervous system, causing seizures and loss of memory and body movement. Date Last Reviewed: 05/10/201619994555-[address] [employer] [place] [address], [place] [address]. All rights reserved. This information is not intended as a substitute for professional medical care. Always follow your healthcare professional's instructions. Eating Heart-Healthy Foods Eating has a big impact on your heart health. In fact, eating healthier can improve several of your heart risks at once. For instance, it helps you manage weight, cholesterol, and blood pressure. Here are ideas to help you make heart- healthy changes without giving up allthe foods and flavors you love. Getting started Talk with your healthcare provider about eating plans, such as the DASH or Mediterranean diet. You may also be referred to a dietitian. Change a few things at a time. Give yourself time to get used to a few eating changes before adding more. Work to create a tasty, healthy eating plan that you can stick to for the rest of your life. Goals for healthy eating Below are some tips to improve your eating habits: Limit saturated fats and trans fats. Saturated fats raise your levels of cholesterol, so keep these fats to a minimum. They are found in foods such as fatty meats, whole milk, cheese, and palm and coconut oils. Avoid trans fats because they lower good cholesterol as well as raise bad cholesterol. Trans fats are most often found in processed foods. Reduce sodium (salt) intake. Eating too much salt may increase your blood pressure. Limit your sodium intake to 2,300 milligrams (mg) per day(the amount in 1 teaspoon of salt), or less if your healthcare provider recommends it. Dining out less often and eating fewer processed foods are two great ways to decrease the amount of salt you consume. Managing calories. A calorie is a unit of energy. Your body acosta calories for fuel, but if you eat more calories than your body acosta, the extras are stored as fat. Your healthcare provider can help you create a diet plan to manage your calories. This will likely include eating healthier foods as well as exercising regularly. To help you track your progress, keep a diary to record what you eat and how often you exercise. Choose the right foods Aim to make these foods elizabeth of your diet. If you have diabetes, you may have different recommendations than what is listed here: Fruits and vegetables provide plenty of nutrients without a lot of calories. At meals, fill half your plate with these foods. Split the other half of your plate between whole grains and lean protein. Whole grains are high in fiber and rich in vitamins and nutrients. Good choices include whole-wheat bread, pasta, and brown rice. Lean proteins give you nutrition with less fat. Good choices include fish, skinless chicken, and beans. Low-fat or nonfat dairy provides nutrients without a lot of fat. Try low-fat or nonfat milk, cheese, or yogurt. Healthy fats can be good for you in small amounts. These are unsaturated fats , such as olive oil,nuts, and fish. Try to have at least 2 servings per week of fatty fish, such as salmon, sardines, mackerel, rainbow trout, and albacore tuna. These contain omega-3 fatty acids, which are good for your heart. Flaxseed is another source of a heart-healthy fat. More on heart-healthy eating Read food labels Healthy eating starts at the grocery store. Be sure to pay attention to food labels on packaged foods. Look for products that are high in fiber and protein, and low in saturated fat, cholesterol, and sodium. Avoid products that contain trans fat. And pay close attention to serving size. For instance, if you plan to eat two servings, double all the numbers on the label. Prepare food right A blount part of healthy cooking is cutting down on added fat and salt. Look on the internet for lower-fat, lower-sodium recipes. Also, try these tips: Remove fat from meat and skin from poultry before cooking. Skim fat from the surface of soups and sauces. Broil, boil, bake, steam, grill, and microwave food without added fats. Choose ingredients that spice up your food without adding calories, fat, or sodium. Try these items: horseradish, hot sauce, lemon, mustard, nonfat salad dressings, and vinegar. For salt-free herbs and spices, try basil, cilantro, cinnamon, pepper, and malcolm. Date Last Reviewed: 04/09/201719992301-[address] [employer] [place] [address], [place] [address]. All rights reserved. This information is not intended as a substitute for professional medical care. Always follow your healthcare professional's instructions. Understanding USDA MyPlate The USDA (U.S. Department of Agriculture) has guidelines to help you make healthy food choices. These are called MyPlate. MyPlate shows the food groups that make up healthy meals using the image of a place setting. Before you eat, think about the healthiest choices for what to put onto your plate or into your cup or bowl. To learn more about building a healthy plate, visit www.choosemyplate.gov. The food groups Fruits. Any fruit or 100% fruit juice counts as part of the Fruit Group. Fruits may be fresh, canned, frozen, or dried, and may be whole, cut-up, or pureed. Make half your plate fruits and vegetables. Vegetables. Any vegetable or 100% vegetable juice counts as a member of the Vegetable Group. Vegetables may be fresh, frozen, canned, or dried. They can be served raw or cooked and may be whole, cut-up, or mashed. Make half your plate fruits and vegetables. Grains. All foods made from grains are part of the Grains Group. These include wheat, rice, oats,cornmeal, and barley such as bread, pasta, oatmeal, cereal, tortillas, and grits. Grains should be no more than a quarter of your plate. At least half of your grains should be whole grains. Protein. This group includes meat, poultry, seafood, beans and peas, eggs, processed soy products(like tofu), nuts (including nut butters), and seeds. Make protein choices no more than a quarter ofyour plate. Meat and poultry choices should be lean or low fat. Dairy. All fluid milk products and foods made from milk that contain calcium , like yogurt and cheese, are part of the Dairy Group. (Foods that have little calcium, such as cream, butter, and cream cheese, are not part of the group.) Most dairy choices should be low-fat or fat-free. Oils. These are fats that are liquid at room temperature. They include canola , corn, olive, soybean, and sunflower oil. Foods that are mainly oil include mayonnaise, certain salad dressings, and soft margarines. You should have only 5 to 7 teaspoons of oils a day. You probably already get this muchfrom the food you eat. Date Last Reviewed: 02/07/201719994681-[address] [employer] [place] [address]. All rights reserved. This information is not intended as a substitute for professional medical care. Always follow your healthcare professional's instructions. documented in this encounter Progress Notes Zoe Suazo, ABRASIVE MIXER - 03/07/2019 1:00 PM CDT Chief complaint: Chief Complaint Patient presents with Care 6Wk WWE Well Woman Exam HPI Here for Well Woman Exam and contraceptive management. Patient has BTL for contraception. Reviewed risks/benefits/alternative contraceptive methods. Denies cramps, vaginal discharge, genital lesions, breast pain and vaginal pain. Recent STD testing in negative Pt reports no past or present history of physical, sexual, and emotional abuse. Rubella: immune VZV: immune BMI: Body mass index is 33.86 kg/m. Td: 2019 Pap Smear: [address] Horner, records requested. Gardasil: N/A Mammogram: due age 41 Guaiac:N/A Colonoscopy:N/A Histories OB History Para Term AB Living [...] Past Surgical History: Procedure Laterality Date ERCP,W/DESTRUCTION,LITHOTRIPSY,STONE 2016 OVARIAN CYSTECTOMY 2016 [place] ANESTH,KIDNEY,PROX URETER SURG Left 2016 blockage from stone/infection/surgery to relieve infection TUBAL LIGATION N/A 01/25/2019 Surgeon: Nini Pulido MD; Location: Labor and Delivery [facility] Social History Socioeconomic History Marital status: Spouse [...] use: No Drug use: No Sexual activity: Not Currently Partners: Male control/protection: Surgical Comment: last sexual intercourse 01/2019 Lifestyle Physical activity: Days per week: Not on file Minutes per session: Not on file Stress: Not on file Relationships Social connections: Talks on phone: Not on file Gets together: Not on file Attends christianity service: Not on file Active member of [...] Concern Not on file Social History Narrative Yarsani preference none. Patient lives with children. Social History Substance and Sexual Activity Sexual Activity Not Currently Partners: Male control/protection: Surgical Comment: last sexual intercourse 01/2019 Labs I have reviewed the patient's labs. and Labs are pending. Radiology No new radiology. Allergies Shamika is allergic to nka [no known allergies]. Medications Shamika has a current medication list which includes the following prescription(s) : sertraline. Review of Systems Constitutional: Negative. HENT: Negative. Eyes: Negative. Respiratory: Negative. Breasts: Negative. Cardiovascular: Negative. Gastrointestinal: Negative. Genitourinary: Negative. Musculoskeletal: Negative. Skin: Negative. Neurological: Negative. Psychiatric/Behavioral: Negative. Endocrine: Endocrine negative BP 130/89 (BP Location: Right arm, Patient Position: Sitting, BP CUFF SIZE: Adult Medium) | Pulse 104 | Temp 36.8 C (98.2 F) (Oral) | Resp 16 | Ht 5 ' (1.524 m) | Wt 173 lb 6 oz (78.6 kg) | LMP 05/03/2018 (Approximate) | ? No | BMI 33.86 kg/m Pregravid BMI: Could not be calculated Physical Exam Vitals reviewed. Constitutional: She is oriented to person, place, and time. She appears well- developed and well-nourished. Her body habitus is normal. Neck: No thyroid nodules and no thyromegaly palpated. Cardiovascular: Regular rate and rhythm. No murmur auscultated. Pulmonary/Chest: Breath sounds clear to auscultation. Normal inspiratory effort. Abdominal: Abdomen is soft. No mass palpated. No tenderness present. There is no hepatosplenomegaly. Neuro/Psychiatric: She has a normal mood and affect. She is oriented to person, place, and time. Skin: Skin normal. No lesion and no rash present. Tattoos present Breast: Right breast exhibits no mass, no nipple discharge and no tenderness. Left breast exhibits no mass, no nipple discharge and no tenderness. Normal left breast and normal right breast External genitalia: Normal external genitalia appropriate for age. No labial lesion. Bladder: No tenderness. Normal bladder Vagina:Normal vagina. No lesion inspected. No abnormal vaginal discharge found. Cervix: Normal cervix. No lesion. No tenderness and no discharge present. Uterus: Uterus is normal size, normal position and non-tender. Normal uterus Adnexa: Right adnexa without tenderness. Left adnexa without tenderness. Normal left adnexa and normal right adnexa Assessment/Plan 1. Well woman exam CBE performed, educated patient regarding self breast awareness. SBE monthly. Patient advised mammograms to begin at age 41 Encourage green leafy vegetables, lean meats and fruit in diet. Avoid fatty, fried, sugary foods. Increase H2O intake (1/2 body weight in ozs). Exercise 30 minutes daily x 7 days/week as tolerated. Follow up 1 year 2. anemia Repeat CBC today CBC WBC x10^3 (/CMM) Date Value 11/10/2010 9.2 WBC (10*3/L) Date Value 01/26/2019 12.42 (H) RBC x10^6 (/CMM) Date Value 11/10/2010 4.69 RBC (10*6/L) Date Value 01/26/2019 3.45 (L) PLT x10^3 (/CMM) Date Value 11/10/2010 300 PLT (10*3/L) Date Value 01/26/2019 167 HGB Date Value 01/26/2019 9.9 g/dL (L) 11/10/2010 14.2 G/DL HCT (%) Date Value 01/26/2019 31.5 (L) 11/10/2010 42.8 - CBC WITH DIFF - CBC WITH DIFFERENTIAL 3. Status post tubal ligation Satisfied with method 4. Depression, unspecified depression type On sertraline, reports well controlled, managed by other provider 5. BMI 33.0-33.9,adult The patient is asked to make an attempt to improve diet and exercise patterns to aid in medical management of this problem. Discussed treatment options. Reviewed patient instructions and provided printed copy. This visit did not involve counseling and coordination that comprised more than 50% of the visit time. Laura Zambrano LVN - 03/07/2019 1:00 PM CDT38 year old presented to the clinic for WWE. 1) Previous BCM:BTL 2) Desired BCM: BTL 3) LMP:05/03/2018 4) Last [place]: 01/23/2019 5) Last Pap: 05/2018 Results:negative per patient 6) Tdap in last 10 years?11/15/2018 HPV?no 7) C/O none 8) Patient denies history of physical, emotional, or sexual abuse. Patient states she currently feels safe at home. documented in this encounter Plan of Treatment Name Type Priority Associated Diagnoses Date/Time CBC WITH DIFF LAB Routine anemia 03/07/2019 1:48 PM CDT CBC WITH DIFFERENTIAL LAB Routine anemia 03/07/2019 1:48 PM CDT Health Maintenance Due Date Last Done Comments HgA1C 1982 PNEUMOCOCCAL 0-64 YEARS COMBINED 1987 SERIES (1 of 1 - PPSV23) EYE EXAM 1991 LDL-C 1991 URINE MICROALBUMIN 1991 FOOT EXAM 1999 PAP SMEAR 10/06/2016 10/07/2011, 07/19/2010, 06/15/2009, Additional history exists INFLUENZA VACCINE (#1) 2019 CREATININE (SERUM) 06/22/2019 06/22/2018, 08/14/2005 DTaP,Tdap,and Td Vaccines (2 - Td) 11/15/2028 11/15/2018 documented as of this encounter Results Not on filedocumented in this encounter Visit Diagnoses Diagnosis Well woman exam - Primary Routine general medical examination at a health care facility anemia Anemia, Status post tubal ligation Tubal ligation status Depression, unspecified depression type BMI 33.0-33.9,adult Body Mass Index 33.0-33.9, adult documented in this encounter Insurance Payer Benefit Plan / Subscriber ID Effective Phone Address Type Group Dates [facility] [id number] 2017-Hannah [phone] [address] PPO/POS nt [phone] [id number] [place] [address] [facility] xxxxxxxxx 2018-Pres Medicaid [employer] ent HEALTH PLAN - MANAGED MEDICAID documented as of this encounter Advance Directives Name Relationship Healthcare Agent Communication Relationship Sheng Faithdo Spouse Primary healthcare agent [email or web address]
--- OUTSIDE RECORDS SUMMARY | 2019-08-21 13:37 | XMS REPORT | Summary of Care ---
:1980 Author Organization [facility] Address [address] [place] [address] Care Team Providers Name Role Phone Zoe Suazo [facility] Primary Care Provider Reason for Visit Reason Comments Care 6Wk WWE Well Woman Exam Encounter Details Date Type Department Care Team Description 03/07/2019 Office Visit [facility]- Zoe Suazo, Well woman exam (Primary Dx); [facility] anemia; [address] Status post tubal ligation; [place], [place] Omar A Depression, unspecified depression type; [id number] [place] [address] BMI 33.0-33.9,adult [phone] Allergies Active Allergy Reactions Severity Noted Date Comments No Known Allergies 08/15/2005 documented as of this encounter (statuses as of 03/07/2019) Medications Medication Sig Dispensed Refills Start Date End Date Status SERTraline (ZOLOFT) Take 50 mg by 0 Active 50 mg tablet mouth daily. VIT Take by 0 03/07/2019 Discontinued [id number] AC mouth. ORAL documented as of this [...] This exam may be done by a environmental systems coordinator, family healthcare provider, nurse practitioner, nurse bead filler, or specially trained nurse. Yearly breast exams [...] Guidelines for having clinical breast exams The [place] [employer] recommends that [...] is best for you. Date Last Reviewed: 02/07/201719996202-6418 [employer] [place] [address]. All rights reserved. This information is not [...] breast self-examination (BSE). These experts include the [place] [employer], the U.S. Preventive Services Task Force, and the [place] [employer] Gynec[employer]. Some experts [...] they are not cancer. Date Last Reviewed: 02/07/201719992461-6333 [employer]. [address] [place] [address], [place] [address]. All rights reserved. This information is not [...] does not recommend CBE. Date Last Reviewed: 04/09/201719993370-7903 [employer] [place] [address]. All rights reserved. This information is not [...] to protect your future. Date Last Reviewed: 06/09/201619995962-5802 [employer] [place] [address], [place] [address]. All rights reserved. This information is not [...] memory and body movement. Date Last Reviewed: 05/10/201619990085-8[address] [employer]. [address] [place] [address], [place] [address]. All rights reserved. This information is not [...] cinnamon, pepper, and malcolm. Date Last Reviewed: 04/09/201719995176-8413 [employer]. [address] [place] [address], [place] [address]. All rights reserved. This information is not [...] the food you eat. Date Last Reviewed: 02/07/201719990856-7379 [employer]. [address] [place] [address]. All rights reserved. This information is not intended as a substitute for professional medical care. Always follow your healthcare professional's instructions. documented in this encounter Progress Notes Zoe Suazo, MANUFACTURER'S REPRESENTATIVE - 03/07/2019 1:00 PM CDT Chief complaint: [...] Laterality Date ERCP,W/DESTRUCTION,LITHOTRIPSY,STONE 2016 OVARIAN CYSTECTOMY 2016 [place] ANESTH,KIDNEY,PROX URETER SURG Left 2016 blockage from stone/infection/surgery to relieve infection TUBAL LIGATION N/A 01/25/2019 Surgeon: Nini Pulido MD; Location: Labor and Delivery [facility] Social History Socioeconomic History Marital status: Spouse [...] file Gets together: Not on file Attends yarsanism service: Not on file Active member of [...] Concern Not on file Social History Narrative Moravian preference none. Patient lives with children. Social [...] Desired BCM: BTL 3) LMP:05/03/2018 4) Last [place]: 01/23/2019 5) Last Pap: 05/2018 Results:negative per [...] ID Effective Phone Address Type Group Dates [facility] [id number] 2017-Hannah [phone] [address] PPO/POS nt [phone] [place] [address] [facility] xxxxxxxxx 2018-Pres Medicaid [employer] ent HEALTH PLAN - MANAGED MEDICAID documented as of this encounter Advance Directives Name Relationship Healthcare Agent Communication Relationship Sheng Faithdo Spouse Primary healthcare agent [phone]
--- OUTSIDE RECORDS SUMMARY | 2019-08-21 13:37 | XMS REPORT | Summary of Care ---
:1980 Author Organization [facility] Address [address] [place] [address] Care Team Providers Name Role Phone Pcp, Patient Does Not Have A Primary Care Provider Doctor Unassigned, [place] Primary Care Provider Unavailable Pcp, Patient Does Not Have A Primary Care Provider Marisa Bonilla [facility] Primary Care Provider Unavailable Nini Pulido MD Primary Care Provider Alex Larson MD Primary Care Provider Laquita [place] Primary Care Provider Laquita [place] Primary Care Provider Yvonne Monk [facility] Primary Care Provider Emery Griffin Primary Care Provider Unavailable Nini Pulido MD Primary Care Provider Laquita [place] Primary Care Provider Maggie Kennedy [facility] Primary Care Provider Yvonne Monk [facility] Primary Care Provider Alex Larson MD Primary Care Provider Corie Snider [facility] Primary Care Provider Yvonne Monk [facility] Primary Care Provider Zoe Suazo [employer] Primary Care Provider Encounter Details Date Type Department Care Team Description Orders Only [facility] Doctor Unassigned, No 301 [facility] [place] [address] [place] [address] Allergies Active Allergy Reactions Severity Noted Date Comments No Known Allergies 08/15/2005 documented as of this encounter (statuses as of 03/12/2019) Medications No known medicationsdocumented as of this encounter (statuses as of 03/12/2019) Active Problems Problem Noted Date anemia 02/15/2019 [...] as of this encounter (statuses as of 03/12/2019) Resolved Problems Problem Noted Date Resolved Date [...] AMA (advanced maternal age) multigravida 35+, unspecified 11/01/2018 08/09/ 2019 trimester Poor weight gain of , second trimester 11/01/2018 02/15/2019 Urinary tract infection in mother during first trimester of 06/13/20182018 Elderly multigravida in first trimester 06/12/2018 11/15/2018 Supervision of high risk , antepartum 06/12/2018 02/15/2019 documented as of this encounter (statuses as of 03/12/2019) Social History Tobacco Use Types Packs/Day Years Used Date Never Assessed Sex Assigned at Date Recorded Not on file Job Start Date Occupation Industry Not on file Not on file Not on file Travel History Travel Start Travel End No recent travel history available. documented as of this encounter Last Filed Vital Signs Not on filedocumented in this encounter Plan of Treatment Health Maintenance Due Date Last Done Comments HgA1C 1982 PNEUMOCOCCAL 0-64 YEARS COMBINED 1987 SERIES (1 of 1 - PPSV23) EYE EXAM 1991 LDL-C 1991 URINE MICROALBUMIN 1991 FOOT EXAM 1999 PAP SMEAR 10/06/2016 10/07/2011, 07/19/2010, 06/15/2009, Additional history exists INFLUENZA VACCINE (#1) 2019 CREATININE (SERUM) 06/22/2019 06/22/2018, 08/14/2005 DTaP,Tdap,and Td Vaccines (2 - Td) 11/15/2028 11/15/2018 documented as of this encounter Procedures Procedure Name Priority Date/Time Associated Diagnosis Comments AUTHORIZATION TO RELEASE Routine PHI TO [facility] RAIL MANAGER documented in this encounter Results Not on filedocumented in this encounter Advance Directives Name Relationship Healthcare Agent Communication Relationship Sheng Faithdo Spouse Primary healthcare agent [phone]
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
[2019-08-21] MEDS ORDERED: IBUPROFEN 400 MG TAB ONE (16:08)
[2019-08-22 21:24] VITALS: TEMP 98.1
[2019-08-22 21:27] VITALS: BP 107/68; O2SAT 100
== END 2019-08-21 16:14 | disposition home or self-care (01) ==
LOC: ER 13:34
DX: R51 Headache (principal); H57.12 Ocular pain, left eye; F32.9 Major depressive disorder, single episode, unspecified; Y04.2XXA Assault by strike against or bumped into by another person, initial encounter; Y93.9 Activity, unspecified; Y92.89 Other specified places as the place of occurrence of the external cause
CPT/HCPCS: 70450; 70480; 72125; 76377; 99283

== ENCOUNTER 2019-09-15 14:54 | Emergency (ER) | payer BC ==
--- OUTSIDE RECORDS SUMMARY | 2019-09-15 14:56 | XMS REPORT ---
:1980 [facility] Address [address] [place] [address] Dr. Hinojosa [address] [place] [id number] Care Team Providers Name Role Phone Unavailable Unavailable Unavailable Problems This patient has no known problems. Allergies, Adverse Reactions, Alerts This patient has no known allergies or adverse reactions. Medications This patient has no known medications.
[2019-09-15] MEDS ORDERED: LIDOCAINE 1% MPF 5 ML VIAL ONE (16:52)
[2019-09-15] MEDS ORDERED: TETANUS & DIPHTHERIA TOX,ADULT 0.5 ML VIAL ONE (16:52)
--- NOTE | 2019-09-15 17:08 | RAD REPORT ---
EXAM DESCRIPTION: RAD - Hand Right 3 View - 09/15/2019 4:46 pm CLINICAL HISTORY: laceration hand Pain and swelling. COMPARISON: No comparisons FINDINGS: No fracture, dislocation or radiopaque foreign body.
--- NOTE | 2019-09-15 17:24 | EDPHYS ---
Physician Documentation [facility] Name: Shamika Smith Age: 39 yrs Sex: Female : 1980 Arrival Date: 09/15/2019 Time: 14:55 Bed 11 Private MD: Shanel Hermosillo H ED Physician Johnie Kumari HPI: 09/14 16:21 This 39 yrs old Female presents to ER via Ambulatory with complaints of Finger pm1 Laceration. 16:21 The patient or guardian reports a laceration, irregular. pm1 16:22 The complaints affect the medial aspect of right 5th finger. Context: The problem was pm1 sustained at home, resulted from broken glass with washing dishes. Onset: The symptoms/episode began/occurred just prior to arrival. Modifying factors: The symptoms are alleviated by pressure to area, the symptoms are aggravated by nothing. Associated signs and symptoms: Pertinent negatives: cyanosis distally, decreased sensation distally, numbness distally, tingling distally. Severity of symptoms: in the emergency department the symptoms have improved. The patient has not experienced similar symptoms in the past. The patient has not recently seen a physician. Historical: - Allergies: 15:22 No Known Allergies; aa5 - Home Meds: 15:22 Zoloft Oral [Active]; aa5 - PMHx: 15:22 Depression; aa5 - PSHx: 15:22 Kidney stents; Tubal ligation; aa5 - Immunization history:: Last tetanus immunization: unknown. - Social history:: Smoking status: Patient denies any tobacco usage or history of. ROS: 16:22 Constitutional: Negative for fever, chills, and weight loss, Cardiovascular: Negative pm1 for chest pain, palpitations, and edema, Respiratory: Negative for shortness of breath, cough, wheezing, and pleuritic chest pain, Back: Negative for injury and pain, MS/Extremity: Negative for injury and deformity. 16:22 Neuro: Negative for headache, weakness, numbness, tingling, and seizure. 16:22 Skin: Positive for laceration(s), of the medial aspect of right fifth finger. Exam: 16:22 Constitutional: This is a well developed, well nourished patient who is awake, alert, pm1 and in no acute distress. Head/Face: Normocephalic, atraumatic. Chest/axilla: Normal chest wall appearance and motion. Nontender with no deformity. No lesions are appreciated. Cardiovascular: Regular rate and rhythm with a normal S1 and S2. No gallops, murmurs, or rubs. Normal PMI, no JVD. No pulse deficits. Respiratory: Lungs have equal breath sounds bilaterally, clear to auscultation and percussion. No rales, rhonchi or wheezes noted. No increased work of breathing, no retractions or nasal flaring. 16:22 MS/ Extremity: Pulses equal, no cyanosis. Neurovascular intact. Full, normal range of motion. 16:22 Skin: Appearance: normal except for affected area, injury, laceration(s), the wound is approximately 3 cm(s), with a depth of 0.5 cm(s), of the medial aspect of right little finger. 16:22 Neuro: Orientation: is normal, Motor: is normal, moves all fours. Vital Signs: 15:20 BP 114 / 74; Pulse 97; Resp 18 S; Temp 98.0(TE); Pulse Ox 99% on R/A; Weight 81.65 kg aa5 (R); Height 5 ft. 0 in. (152.40 cm) (R); Pain 5/10; 15:20 Body Mass Index 35.15 (81.65 kg, 152.40 cm) aa5 Laceration: 18:29 Wound Repair of 3cm ( 1.2in ) subcutaneous laceration to right little finger. pm1 Irregularly shaped.. Distal neuro/vascular/tendon intact. Anesthesia: Digital block administered with 2 mls of 1% lidocaine. Wound prep: Extensive cleansing with betadine by ne, Wound irrigation with saline by ne, Wound explored extensively, Copious irrigation. Skin closed with 6 5-0 Prolene using simple sutures and sterile technique. Dressed with Neosporin, 4x4's, splint. Patient tolerated well. MDM: 15:37 Patient medically screened. pm1 16:25 Data reviewed: vital signs. Data interpreted: Pulse oximetry: on room air is 99 %. pm1 Interpretation: normal. 17:22 Counseling: I had a detailed discussion with the patient and/or guardian regarding: the pm1 historical points, exam findings, and any diagnostic results supporting the discharge/admit diagnosis, radiology results, the need for outpatient follow up, suture removal in 10-14 days, to return to the emergency department if symptoms worsen or persist or if there are any questions or concerns that arise at home. 09/14 16:31 Order name: Hand Right 3 View; Complete Time: 17:24 EDAL 09/14 15:52 Order name: Prolene, Sutures; Complete Time: 16:51 pm1 09/14 15:52 Order name: Dressing - Wound; Complete Time: 17:30 pm1 09/14 15:52 Order name: Gloves, Sterile; Complete Time: 16:51 pm1 09/14 15:52 Order name: Setup Suture Tray; Complete Time: 16:51 pm1 09/14 17:24 Order name: Splint - Finger; Complete Time: 17:30 pm1 Administered Medications: 16:52 Drug: Tetanus-Diphtheria Toxoid Adult 0.5 ml {Geothermal Electrical [employer]: [employer]. Exp: aa5 06/07/2021. Lot #: [id number]. } Route: IM; Site: right deltoid; 17:30 Follow up: Response: No adverse reaction aa5 17:10 Drug: Lidocaine (1 %) 5 ml {Note: administered by MARINE PLUMBER during laceration repair. .} aa5 Volume: 5 ml; Route: Infiltration; Disposition: 18:22 Co-signature as Attending Physician, Johnie Kumari MD. rn Disposition: 09/15/19 17:23 Discharged to Home. Impression: Laceration without foreign body of right little finger without damage to nail. - Condition is Stable. - Discharge Instructions: Laceration Care, Adult. - Prescriptions for Keflex 500 mg Oral Capsule - take 1 capsule by ORAL route every 12 hours for 10 days; 20 capsule. - Work release form, Medication Reconciliation Form, Thank You Letter, Antibiotic Education, Prescription Opioid Use form. - Follow up: Emergency Department; When: As needed; Reason: Worsening of condition. Follow up: Private Physician; When: 10 - 14 days; Reason: Wound Recheck, Recheck today's complaints, Continuance of care, Staple/Suture removal, Re-evaluation by your physician. - Problem is new. - Symptoms have improved. Signatures: Dispatcher [employer] [facility] Johnie Kumari MD MD rn Calderon, Audri, RN RN aa5 Wei Jimenes NP [employer]INE PLUMBER pm1 Corrections: (The following items were deleted from the chart) 17:34 17:22 Hand Right 3 View+RAD.RAD.BRZ ordered. EDAL EDMS 17:47 17:23 09/15/2019 17:23 Discharged to Home. Impression: Laceration without foreign body aa5 of right little finger without damage to nail. Condition is Stable. Forms are Medication Reconciliation Form, Thank You Letter, Antibiotic Education, Prescription Opioid Use. Follow up: Emergency Department; When: As needed; Reason: Worsening of condition. Follow up: Private Physician; When: 10 - 14 days; Reason: Wound Recheck, Recheck today's complaints, Continuance of care, Staple/Suture removal, Re-evaluation by your physician. Problem is new. Symptoms have improved. pm1
--- NOTE | 2019-09-15 17:24 | ER ---
Nurse's Notes [facility] Name: Shamika Smith Age: 39 yrs Sex: Female : 1980 Arrival Date: 09/15/2019 Time: 14:55 Bed 11 Private MD: Shanel Hermosillo H Diagnosis: Laceration without foreign body of right little finger without damage to nail Presentation: 09/14 15:20 Chief complaint: Patient states: "I was doing the dishes and I broke a glass and it cut aa5 my little finger". Laceration noted to right little finger. Pt states "I also have a cough and chills and I want that checked out as well". Coronavirus screen: The patient has NOT traveled to a country currently being monitored by the CDC within the last 14 days. Ebola Screen: Patient negative for fever greater than or equal to 101.5 degrees Fahrenheit, and additional compatible Ebola Virus Disease symptoms. Initial Sepsis Screen: Does the patient meet any 2 criteria? No. Patient's initial sepsis screen is negative. Does the patient have a suspected source of infection? No. Patient's initial sepsis screen is negative. Risk Assessment: Do you want to hurt yourself or someone else? Patient reports no desire to harm self or others. 15:20 Method Of Arrival: Ambulatory aa5 15:20 Acuity: CARMELLA 4 aa5 Historical: - Allergies: 15:22 No Known Allergies; aa5 - Home Meds: 15:22 Zoloft Oral [Active]; aa5 - PMHx: 15:22 Depression; aa5 - PSHx: 15:22 Kidney stents; Tubal ligation; aa5 - Immunization history:: Last tetanus immunization: unknown. - Social history:: Smoking status: Patient denies any tobacco usage or history of. Screenin:30 Abuse screen: Denies threats or abuse. Nutritional screening: No deficits noted. aa5 Tuberculosis screening: No symptoms or risk factors identified. Fall Risk None identified. Assessment: 15:30 General: Appears comfortable, Behavior is calm, cooperative. Pain: Complains of pain in aa5 right little finger. Neuro: Level of Consciousness is awake, alert, obeys commands, Oriented to person, place, time, situation. Cardiovascular: Patient's skin is warm and dry. Respiratory: Airway is patent Respiratory effort is even, unlabored, Respiratory pattern is regular, symmetrical. GI: No signs and/or symptoms were reported involving the gastrointestinal system. : No signs and/or symptoms were reported regarding the genitourinary system. EENT: No signs and/or symptoms were reported regarding the EENT system. Derm: Skin is pink, warm \\T\\ dry. Musculoskeletal: Range of motion: intact in all extremities. 15:30 Injury Description: Laceration sustained to right little finger is clean, measures aa5 approximately 1cm long a small amount of bleeding noted at this time. 16:50 Reassessment: Patient is alert, oriented x 3, equal unlabored respirations, skin aa5 warm/dry/pink. 17:30 Reassessment: non-adherent dressing applied to right little finger and pre-formed aa5 finger split applied. . 17:38 Reassessment: Patient is alert, oriented x 3, equal unlabored respirations, skin aa5 warm/dry/pink. 17:38 Reassessment: Patient denies pain at this time. aa5 Vital Signs: 15:20 BP 114 / 74; Pulse 97; Resp 18 S; Temp 98.0(TE); Pulse Ox 99% on R/A; Weight 81.65 kg aa5 (R); Height 5 ft. 0 in. (152.40 cm) (R); Pain 5/10; 15:20 Body Mass Index 35.15 (81.65 kg, 152.40 cm) aa5 ED Course: 14:55 Patient arrived in ED. ag5 14:55 Shanel Hermosillo DO is Private Physician. ag5 15:20 Arm band placed on. aa5 15:20 Patient has correct armband on for positive identification. Adult w/ patient. aa5 15:21 Triage completed. aa5 15:27 Danika Graham, MARIA ELENA is Primary Nurse. aa5 15:28 Wei Jimenes NP is PHCP. pm1 15:28 Johnie Kumari MD is Attending Physician. pm1 16:46 Hand Right 3 View In Process Unspecified. EDMS 17:10 Assist provider with laceration repair on right little finger using sutures. Set up aa5 tray. Performed by Wei Jimenes NP Patient tolerated well. 17:38 Patient did not have IV access during this emergency room visit. aa5 Administered Medications: 16:52 Drug: Tetanus-Diphtheria Toxoid Adult 0.5 ml {Upsetter Setter Up: [employer] Exp: aa5 06/07/2021. Lot #: [id number]. } Route: IM; Site: right deltoid; 17:30 Follow up: Response: No adverse reaction aa5 17:10 Drug: Lidocaine (1 %) 5 ml {Note: administered by IC DESIGN MANAGER during laceration repair. .} aa5 Volume: 5 ml; Route: Infiltration; Outcome: 17:23 Discharge ordered by MD. pm1 17:38 Discharged to home ambulatory, with significant other. aa5 17:38 Condition: stable 17:38 Discharge instructions given to patient, Instructed on discharge instructions, follow up and referral plans. medication usage, Demonstrated understanding of instructions, follow-up care, medications, Prescriptions given X 1. 17:42 Patient left the ED. aa5 Signatures: Dispatcher [employer] EDDanika Vallejo RN RN aa5 Wei Jimenes NP IC DESIGN MANAGER pm1 Yoanna Dave ag5 Corrections: (The following items were deleted from the chart) 15:22 15:20 Chief complaint: Patient states: "I was doing the dishes and I broke a glass and aa5 it cut my little finger". Laceration noted to right little finger. aa5 17:48 17:47 Patient left the ED. aa5 aa5
[2019-09-15 17:57] VITALS: BP 114/74; TEMP 98; O2SAT 99
== END 2019-09-15 17:47 | disposition home or self-care (01) ==
LOC: ER 14:54
PROC: 0JQJ0ZZ Repair Right Hand Subcutaneous Tissue and Fascia, Open Approach (ICD-10-PCS; principal; 2019-09-15)
DX: S61.216A Laceration without foreign body of right little finger without damage to nail, initial encounter (principal); W25.XXXA Contact with sharp glass, initial encounter; Y93.G1 Activity, food preparation and clean up; Y92.000 Kitchen of unspecified non-institutional (private) residence as the place of occurrence of the external cause; F32.9 Major depressive disorder, single episode, unspecified; Z23 Encounter for immunization
CPT/HCPCS: 90471; 90714; 99284

== ENCOUNTER 2021-05-19 01:18 | Emergency (ER) | payer BC ==
[2021-05-19] MEDS ORDERED: KETOROLAC 30 MG/ML INJ ONE (01:40)
[2021-05-19] MEDS ORDERED: ONDANSETRON 4 MG/2 ML VIAL ONE (01:41)
[2021-05-19] MEDS ORDERED: NA CHLORIDE 0.9% 1,000 ML ONE (01:41)
[2021-05-19 02:15] LABS: Absolute Lymphocytes (CBC) 2.2 K/uL (0.7-4.9); Basophils % 0.5 % (0-1.3); Hematocrit 40.1 % (36.0-45.0); Lymphocytes % 17.5 % (15.3-44.8); MPV 8.6 fL (7.6-11.3); RBC Red Blood Cell Count 4.48 M/uL (3.86-4.86)
[2021-05-19 02:35] LABS: Urine Blood Trace-intact (Negative); Urine Glucose Negative (Negative); Urine Protein Negative (Negative); Urine Specific Gravity 1.025 (1.005-1.030)
[2021-05-19 02:36] LABS: ALT/SGPT 37 U/L (12-78); AST/SGOT 19 U/L (15-37); Albumin 3.3 g/dL (3.4-5.0); Alkaline Phosphatase 61 U/L (45-117); BUN Blood Urea Nitrogen 13 mg/dL (7-18); Bicarbonate 25 mmol/L (21-32); Bilirubin Direct 0.1 mg/dL (0-0.2); Bilirubin Total 0.5 mg/dL (0.2-1.0); Glucose Level 92 mg/dL (74-106); Lipase 88 U/L (73-393); Potassium 3.5 mmol/L (3.5-5.1); Sodium Level 139 mmol/L (136-145)
--- NOTE | 2021-05-19 07:14 | RAD REPORT ---
EXAM DESCRIPTION: US - Transvaginal Study Probe - 05/19/2021 6:34 am CLINICAL HISTORY: abdominal pain, fluid in uterus Pelvic pain. COMPARISON: Transvaginal Study Probe dated 02/22/2017; Abdomen Pelvis W Contrast dated 05/19/2021; Stone Protocol dated 12/11/2016 FINDINGS: Enlarged uterus measuring up to 11.3 cm in long axis. There is a fluid collection measurin g 7.7 x 4.1 x 4.2 cm with low level internal echoes that is likely intramural. The endometrial echo c omplex measures 12 millimeters. There are couple of small 1.8 cm and 1.6 cm fibroids. Nabothian cysts are present. Both ovaries are normal in size, shape and echotexture. The right ovary measures 4.8 cc involving. The left ovary measures 17.1 cc in volume. Simple appearing left adnexal cyst measuring 2.8 cm. Normal Doppler blood flow was demonstrated to both ovaries. No significant pelvic ascites. IMPRESSION: 1. Mildly complex appearing fluid collection within the wall of the uterus of uncertain etiology. The patient has had an IUD at one time. Degenerated fibroid or sequela of prior a re possibilities. Suggest referral to Gynecology. 2. Bilateral ovarian blood flow present. 3. Small uterine fibroids.
--- NOTE | 2021-05-19 07:22 | EDPHYS ---
Physician Documentation [facility] Name: Shamika Smith Age: 40 yrs Sex: Female : 1980 Arrival Date: 05/19/2021 Time: 01:22 Bed 18 Private MD: ED Physician Paco Parker HPI: 05/19 01:36 This 40 yrs old Female presents to ER via Ambulatory with complaints of Low sp3 Back Pain, Abdominal Pain. 01:36 40-year-old female with history of kidney stones, uterine ablation presents with sp3 abdominal pain x2 weeks. Patient was seen by her PCP which stated she was constipated for which she took an enema and was able to have a bowel movement but her pain persists. She is also seen at [facility] 2 weeks ago and was diagnosed with a "pulled muscle" and states that no imaging or other blood work was performed. Patient has an appointment with her [employer] physician tomorrow but this evening her pain continued to increase so she presents to the ED today. Currently she denies any nausea, vomiting, diarrhea, upper abdominal pain, back pain, chest pain, shortness of breath, URI symptoms, rash, known sick contacts, COVID-19 contacts, travel history, any other ROS at this time. Patient did state that subjectively she felt like she had a mild fever/chills but that is resolved. Symptoms of been waxing and waning for the last 2 to 3 weeks per patient with waxing and waning episodes throughout.. [employer]ER: 01:30 LMP 2019 dc2 Historical: - PMHx: 01:30 Depression; dc2 - Immunization history:: Adult Immunizations up to date, Client reports receiving the 2nd dose of the Covid vaccine. - Social history:: Smoking status: unknown. ROS: 01:38 Constitutional: Negative for fever, chills, and weight loss, though she did have sp3 subjective fever only Eyes: Negative for injury, pain, redness, and discharge, ENT: Negative for injury, pain, and discharge, Neck: Negative for injury, pain, and swelling, Cardiovascular: Negative for chest pain, palpitations, and edema, Respiratory: Negative for shortness of breath, cough, wheezing, and pleuritic chest pain, Back: Negative for injury and pain, : Negative for injury, bleeding, discharge, and swelling, MS/Extremity: Negative for injury and deformity, Skin: Negative for injury, rash, and discoloration, Neuro: Negative for headache, weakness, numbness, tingling, and seizure, Psych: Negative for depression, anxiety, suicide ideation, homicidal ideation, and hallucinations, Allergy/Immunology: Negative for hives, rash, and allergies, Endocrine: Negative for neck swelling, polydipsia, polyuria, polyphagia, and marked weight changes. 01:38 All other systems are negative. Exam: 01:42 Constitutional: This is a well developed, well nourished patient who is awake, alert, sp3 and in no acute distress. Head/Face: Normocephalic, atraumatic. Eyes: Pupils equal round and reactive to light, extra-ocular motions intact. Lids and lashes normal. Conjunctiva and sclera are non-icteric and not injected. Cornea within normal limits. Periorbital areas with no swelling, redness, or edema. ENT: Nares patent. No nasal discharge, no septal abnormalities noted. External auditory canals are clear. Oropharynx with no redness, swelling, or masses, exudates, or evidence of obstruction, uvula midline. Mucous membranes moist. Neck: Trachea midline, no thyromegaly or masses palpated, and no cervical lymphadenopathy. Supple, full range of motion without nuchal rigidity, or vertebral point tenderness. No Meningismus. Chest/axilla: Normal chest wall appearance and motion. Nontender with no deformity. No lesions are appreciated. Cardiovascular: Regular rate and rhythm with a normal S1 and S2. No gallops, murmurs, or rubs. Normal PMI, no JVD. No pulse deficits. Respiratory: Lungs have equal breath sounds bilaterally, clear to auscultation and percussion. No rales, rhonchi or wheezes noted. No increased work of breathing, no retractions or nasal flaring. Back: No spinal tenderness. No costovertebral tenderness. Full range of motion. Female : Normal external genitalia. Skin: Warm, dry with normal turgor. Normal color with no rashes, no lesions, and no evidence of cellulitis. MS/ Extremity: Pulses equal, no cyanosis. Neurovascular intact. Full, normal range of motion. Neuro: Awake and alert, GCS 15, oriented to person, place, time, and situation. Cranial nerves II-XII grossly intact. Motor strength 5/5 in all extremities. Sensory grossly intact. Cerebellar exam normal. Normal gait. Psych: Awake, alert, with orientation to person, place and time. Behavior, mood, and affect are within normal limits. Vital Signs: 01:30 BP 121 / 86; Pulse 83; Resp 17; Temp 97.7; Pulse Ox 98% ; Weight 80.74 kg; Height 5 ft. dc2 0 in. (152.40 cm); Pain 8/10; 01:30 BP 121 / 86; Pulse 83; Resp 16; Temp 97.7; Pulse Ox 98% ; Pain 8/10; dc2 02:00 BP 124 / 85; Pulse 83; Resp 18; Pulse Ox 98% on R/A; cc4 05:03 BP 115 / 84; Pulse 90; Resp 20; Pulse Ox 95% on R/A; cc4 06:30 BP 91 / 72; Pulse 68; Resp 20; Pulse Ox 100% on R/A; cc4 01:30 Body Mass Index 34.76 (80.74 kg, 152.40 cm) dc2 MDM: 01:27 Patient medically screened. sp3 01:43 Data reviewed: vital signs, nurses notes. ED course: 40-year-old female with 2 weeks of sp3 pain. Broad differential diagnosis including hepatobiliary pathology, bowel pathology, UTI, Itz, kidney stone and lower on the list is HOSPITAL SCIENTIST pathology. Patient has no vaginal discharge or bleeding and has not had a period for over 1 year. HOSPITAL SCIENTIST pathology is much lower on the differential. Will obtain laboratory values, CT scan of the abdomen pelvis, administer normal saline, ketorolac IV, and Zofran IV. Patient did drive here said narcotic administration would require her to find a ride home. Disposition based on work-up and patient course. Patient does have an appointment with her HOSPITAL SCIENTIST doctor scheduled already for tomorrow.. 05:11 ED course: CT scan demonstrates fluid in the uterus otherwise no significant sp3 abnormality. Pelvic ultrasound has been ordered and is pending. I have discussed all results with patient. If ultrasound is negative patient will be discharged home. Patient is aware of the plan and agrees with no questions at this time. Her pain is significantly improved and was able to sleep the last several hours.. 07:19 Data interpreted: Pulse oximetry: on room air is 100 %. Interpretation: normal. jr8 Counseling: I had a detailed discussion with the patient and/or guardian regarding: the historical points, exam findings, and any diagnostic results supporting the discharge/admit diagnosis, lab results, radiology results, the need for outpatient follow up, an OB/Gyne specialist, to return to the emergency department if symptoms worsen or persist or if there are any questions or concerns that arise at home. ED course: Ultrasound determined there is a mildly complex fluid within the wall of the uterus. Unknown etiology at this time. Patient is not based on urinary analysis. Otherwise remains hemodynamically stable and afebrile. Only mild discomfort. Again patient has [employer] appointment today which she'll need to follow-up with them with. Patient knows to come back if worse or other symptoms were to arise in between now and then.. 05/19 01:34 Order name: Basic Metabolic Panel 3 05/19 01:34 Order name: CBC with Diff 3 05/19 01:34 Order name: Hepatic Function; Complete Time: 02:37 [facility] 05/19 01:34 Order name: Lipase; Complete Time: 02:37 3 05/19 01:35 Order name: Basic Metabolic Panel; Complete Time: 02:37 [facility] 05/19 01:35 Order name: CBC with Automated Diff; Complete Time: 02:37 [facility] 05/19 01:34 Order name: CT Abd/Pelvis - IV Contrast Only 3 05/19 02:35 Order name: Urine Dipstick-Ancillary; Complete Time: 02:37 [facility] 05/19 02:38 Order name: Urine --Ancillary (enter results); Complete Time: 07:36 [facility] 05/19 05:52 Order name: Transvaginal Study Probe; Complete Time: 07:17 [facility] 05/19 01:34 Order name: IV Saline Lock; Complete Time: 04:08 3 05/19 01:34 Order name: Labs collected and sent; Complete Time: 04:09 3 05/19 01:34 Order name: Urine Dipstick-Ancillary (obtain specimen); Complete Time: 02:37 sp3 05/19 01:34 Order name: Urine Test (obtain specimen); Complete Time: 02:37 sp3 Administered Medications: 01:44 Drug: NS 0.9% 1000 ml Route: IV; Rate: 1 bolus; Site: left antecubital; cc4 07:40 Follow up: Response: No adverse reaction; IV Status: Completed infusion sl2 01:45 Drug: Ketorolac 30 mg Route: IVP; Site: left antecubital; cc4 07:40 Follow up: Response: No adverse reaction; Pain is decreased sl2 01:45 Drug: Zofran (Ondansetron) 4 mg Route: IVP; Site: left antecubital; cc4 07:40 Follow up: Response: No adverse reaction; Pain is decreased sl2 07:40 Follow up: Response: No adverse reaction; Nausea is decreased sl2 Disposition: 05/20 05:46 Co-signature as Attending Physician, Paco Parker MD I agree with the assessment and sp3 plan of care. Disposition Summary: 05/19/21 07:22 Discharge Ordered Location: Home jr8 Problem: new jr8 Symptoms: have improved jr8 Condition: Stable jr8 Diagnosis - Lower abdominal pain, unspecified jr8 - Pelvic and perineal pain jr8 Followup: jr8 - With: Private Physician - When: Today - Reason: Recheck today's complaints, Continuance of care, Re-evaluation by your physician Discharge Instructions: - Pelvic Pain, Female jr8 - Discharge Summary Sheet cc4 Forms: - Medication Reconciliation Form jr8 - Thank You Letter jr8 - Antibiotic Education jr8 - Prescription Opioid Use jr8 Signatures: Dispatcher [employer] EDMS David Ballard PA PA jr8 Paco Parker MD MD sp3 Evangelina Carter RN RN cc4 Tish Frye RN RN dc2 Leah Nation RN sl2 Corrections: (The following items were deleted from the chart) 05/19 05:52 05:44 Pelvis Complete ordered. EDMS EDMS 07:12 07:10 Pelvis Complete+US.RAD.BRZ ordered. EDMS EDMS
--- NOTE | 2021-05-19 07:22 | ER ---
Nurse's Notes [facility] Name: Shamika Smith Age: 40 yrs Sex: Female : 1980 Arrival Date: 05/19/2021 Time: : Bed 18 Private MD: Diagnosis: Lower abdominal pain, unspecified;Pelvic and perineal pain Presentation: 05/19 01:30 Chief complaint: Patient states: " My stomach is hurting again with nausea" Reports dc2 being here 2 weeks ago for same, did not follow up with primary. Lower left side that radiates to left flank. 01:30 Method Of Arrival: Ambulatory dc2 01:30 Coronavirus screen: Vaccine status: Patient reports receiving the 2nd dose of the covid dc2 vaccine. Client denies travel out of the [place] in the last 14 days. At this time, the client does not indicate any symptoms associated with coronavirus-19. Ebola Screen: Patient negative for fever greater than or equal to 101.5 degrees Fahrenheit, and additional compatible Ebola Virus Disease symptoms Patient denies exposure to infectious person. Patient denies travel to an Ebola-affected area in the 21 days before illness onset. Initial Sepsis Screen: Does the patient meet any 2 criteria? No. Patient's initial sepsis screen is negative. Does the patient have a suspected source of infection? No. Patient's initial sepsis screen is negative. Risk Assessment: Do you want to hurt yourself or someone else? Patient reports no desire to harm self or others. Onset of symptoms was May 05, 2021. 01:30 Acuity: CARMELLA 3 dc2 Triage Assessment: :30 General: Appears in no apparent distress. General: Appears in no apparent distress. dc2 Pain: Complains of pain in left lower quad pain that radiates to flank pain. 01:30 Neuro: No deficits noted. Level of Consciousness is awake, alert, obeys commands, dc2 Oriented to person, place, time, situation. GI: No deficits noted. Abdomen is non-distended, obese. : No signs and/or symptoms were reported regarding the genitourinary system. Derm: No deficits noted. No signs and/or symptoms reported regarding the dermatologic system. Skin is intact, is healthy with good turgor. Musculoskeletal: No deficits noted. No signs and/or symptoms reported regarding the musculoskeletal system. 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 - Social history:: Smoking status: unknown. Screenin:30 Abuse screen: Denies threats or abuse. Denies injuries from another. Nutritional dc2 screening: No deficits noted. Tuberculosis screening: No symptoms or risk factors identified. Fall Risk None identified. Assessment: :30 General: Appears uncomfortable, Behavior is calm, cooperative. Pain: Complains of pain cc4 in abdomen left lower quadrant Pain does not radiate. Pain currently is 8 out of 10 on a pain scale. at worst was 10 out of 10 on a pain scale. level that patient reports is acceptable is 0 out of 10 on a pain scale. Quality of pain is described as crampy, Pain began gradually, 2-3 weeks ago. Neuro: No deficits noted. Level of Consciousness is awake, alert, obeys commands, Oriented to person, place, time, situation. Cardiovascular: No deficits noted. Respiratory: No deficits noted. Airway is patent Respiratory effort is even, unlabored, Breath sounds are clear bilaterally. GI: No deficits noted. Abdomen is non-distended, Last BM was May 18, 2021. : No signs and/or symptoms were reported regarding the genitourinary system. Denies burning with urination, States, "I think it may be an ovarian cyst". EENT: No signs and/or symptoms were reported regarding the EENT system. Derm: No signs and/or symptoms reported regarding the dermatologic system. Musculoskeletal: No signs and/or symptoms reported regarding the musculoskeletal system. Capillary refill < 3 seconds, Range of motion: intact in all extremities. 01:44 Reassessment: No changes from previously documented assessment. # 18 g angiocath cc4 inserted right AC x 1 attempt with no difficulty \\T\\ converted to saline lock, marge. well; blood drawn \\T\\ sent to lab; IV NS hung to saline lock right AC \\T\\ Infusing \\T\\ bolus rate with no s/sx's of infiltration noted of site; medicated as ordered for pain( see orders); will con't to monitor. 02:30 Reassessment: Patient appears in no apparent distress at this time. Resting; reports cc4 decreasing pain of abdomen to 6/10 0n pain scale. 02:38 Reassessment: Up \\T\\ ambulatory to BR with urine specimen collected; urine cc4 negative with CT dept notified. 02:45 Reassessment: Patient appears in no apparent distress at this time. To CT via stretcher.cc4 03:00 Reassessment: Patient appears in no apparent distress at this time. Returned from CT cc4 via stretcher; voices no complaints. 04:00 Reassessment: Patient appears in no apparent distress at this time. Sleeping. cc4 05:00 Reassessment: Patient appears in no apparent distress at this time. Awakened from sleep cc4 by Dr. Parker with Dr. Parker explaining what was found on CT scan \\T\\ informed that US has been ordered with v/u. 05:55 Reassessment: Patient appears in no apparent distress at this time. awakened from sleep cc4 \\T\\ transferred to ultrasound via w/c; denies any c/o pain Patient states feeling better. 06:30 Reassessment: Patient appears in no apparent distress at this time. returned from CT cc4 via w/c. Patient denies pain at this time. Patient states feeling better. 06:55 Reassessment: Report given to MARIA ELENA Lynn. cc4 08:11 GI: Abd is soft and non tender X 4 quads. sl2 Vital Signs: 01:30 BP 121 / 86; Pulse 83; Resp 17; Temp 97.7; Pulse Ox 98% ; Weight 80.74 kg; Height 5 ft. dc2 0 in. (152.40 cm); Pain 8/10; 01:30 BP 121 / 86; Pulse 83; Resp 16; Temp 97.7; Pulse Ox 98% ; Pain 8/10; dc2 02:00 BP 124 / 85; Pulse 83; Resp 18; Pulse Ox 98% on R/A; cc4 05:03 BP 115 / 84; Pulse 90; Resp 20; Pulse Ox 95% on R/A; cc4 06:30 BP 91 / 72; Pulse 68; Resp 20; Pulse Ox 100% on R/A; cc4 01:30 Body Mass Index 34.76 (80.74 kg, 152.40 cm) dc2 ED Course: 01:22 Patient arrived in ED. wm 01:24 Paco Parker MD is Attending Physician. sp3 01:41 Triage completed. dc2 01:42 Evangelina Carter, RN is Primary Nurse. cc4 02:53 CT Abd/Pelvis - IV Contrast Only In Process Unspecified. EDMS 04:08 Basic Metabolic Panel Sent. cc4 04:08 CBC with Diff Sent. cc4 06:34 Transvaginal Study Probe In Process Unspecified. EDMS 06:59 David Ballard PA is PHCP. jr8 07:40 Arm band placed on right wrist. sl2 07:40 Patient has correct armband on for positive identification. sl2 08:10 No provider procedures requiring assistance completed. IV discontinued, intact, sl2 bleeding controlled, No redness/swelling at site. Pressure dressing applied. Administered Medications: 01:44 Drug: NS 0.9% 1000 ml Route: IV; Rate: 1 bolus; Site: left antecubital; cc4 07:40 Follow up: Response: No adverse reaction; IV Status: Completed infusion sl2 01:45 Drug: Ketorolac 30 mg Route: IVP; Site: left antecubital; cc4 07:40 Follow up: Response: No adverse reaction; Pain is decreased sl2 01:45 Drug: Zofran (Ondansetron) 4 mg Route: IVP; Site: left antecubital; cc4 07:40 Follow up: Response: No adverse reaction; Pain is decreased sl2 07:40 Follow up: Response: No adverse reaction; Nausea is decreased sl2 Outcome: 07:22 Discharge ordered by . jr8 08:10 Discharged to home sl2 08:10 Discharged to home ambulatory. 08:10 Condition: stable 08:10 Discharge instructions given to patient, Instructed on discharge instructions, follow up and referral plans. Demonstrated understanding of instructions, follow-up care. 08:12 Patient left the ED. sl2 Signatures: Dispatcher [employer] EDNY David Ballard PA PA jr8 Lissette Salazar Paco Parker MD MD sp3 Evangelina Carter, RN RN cc4 Tish Frye RN RN dc2 Leah Nation RN RN sl2
[2021-05-19 07:35] LABS: Urine Specific Gravity/Preg 1.025 (1.005-1.030)
[2021-05-19 08:19] VITALS: TEMP 97.7
[2021-05-19 08:23] VITALS: BP 91/72; O2SAT 100
--- NOTE | 2021-05-19 11:19 | RAD REPORT ---
EXAM DESCRIPTION: CT - Abdomen Pelvis W Contrast - 05/19/2021 6:16 am CLINICAL HISTORY: 40 years, Female, ABD PAIN COMPARISON: 12/11/2016 TECHNIQUE: Contrast-enhanced images of the abdomen and pelvis were performed utilizing 5 mm slice th ickness at 5 mm interval reconstruction from the lung bases to the ischial tuberosities after the adm inistration of IV contrast. In addition multiplanar reformats in the coronal and sagittal plane were obtained and reviewed. This exam was performed according to our departmental dose-optimization protocol, which includes auto mated exposure control, adjustment of the mA and/or kV according to patient size and/or use of iterat eleonora reconstruction technique. FINDINGS: The lung bases demonstrate to be clear. The liver demonstrate decreased attenuation corresponding to fatty infiltration. Otherwise the liver, gallbladder, pancreas, spleen and adrenal glands demonstrate to be unremarkable, no focal lesions ar e noted. The kidneys demonstrate normal uptake of contrast media. The left kidney demonstrated presence of a upper pole calculus measuring 3.8 mm on image 28, lower po le calculus measuring 2.4 mm on image 38. There is mild caliectasis with slight prominence of the pro ximal left ureter. No significant calculus is identified within the left ureter. The right kidney dem onstrate the presence of a 2.1 mm lower pole calculus on image 43. There is no evidence for right hyd ronephrosis and/or right hydroureter. Grossly the unopacified stomach, small bowel and large bowel demonstrate to be within normal limits. There is no evidence for bowel dilatation an/or free air. The appendix is normal. The left site c olon is decompressed The urinary bladder demonstrate to be unremarkable. The uterus demonstrate interval removal of the previous described intrauterine device. There is prominent fluid content of the endometrial cavity. T here several hypodensities within the cervical canal most likely employment representative of a nabothian cyst. There are no adnexal masses. The aorta demonstrate to be normal. There is no retroperitoneal lymp hadenopathy. There is no evidence for ascites/or significant abnormal fluid collections. The rest of the soft tissue and bony structures are within normal limits. IMPRESSION: Mild caliectasis with slight prominence of the proximal left ureter. No significant calc ulus is identified within the left ureter. Bilateral nephrolithiasis. Interval removal of the previous described intrauterine device. Prominent fluid content of the endome trial cavity containing most likely fluid concern further evaluation with pelvic ultrasound could be of assistance. Hepatic steatosis. Electronically signed by: Adam Mathur MD 05/19/2021 3:17 AM PUTTIER Due to temporary technical issues with the PACS/Fluency reporting system, reports are being signed by the in house radiologist without review as a courtesy to ensure prompt reporting. The interpreting r adiologist is fully responsible for the content of the report.
--- OUTSIDE RECORDS SUMMARY | 2021-05-22 18:51 | XMS REPORT | Continuity of Care Document ---
:1980 Author Organization [facility] t Address [address] [place] [address] Care Team Providers Name Role Phone Reshma Duncan NP Primary Care Physician Coretta JOHNSTON, S Attending Clinician CLEWING Attending Clinician Unavailable Gabriele SNEEDP, Jacinda Attending Clinician Doctor Unassigned, Name Attending Clinician Unavailable CLEWING Admitting Clinician Unavailable Payers Payer Name Policy Type Policy Number Effective Date Expiration Date S blancaria [facility] [id number] 2017 00:00:00 [place] [employer] [id number] 2018 HEALTH 00:00:00 Advance Directives Directive Decision Effective Termination Comments Source Date Date Healthcare Agents on N/A [facility] FileNameRelationshipHealthcare of [place] Agent Medical RelationshipCommunicationAllenwood Branch EscobedoSpouseHealth Care [phone] (Mobile) Problems Condition Condition Condition Status Onset Resolution Last Treating Co mments Source Name Details Category Date Date Treatment Clinician Date Disease Active 2019-0 U nivers anemia anemia 8-09 ity of 00:00: [place] [address] Medical Branch Hematuria, Hematuria, Disease Active 2019-0 U nivers unspecifie unspecifie 4-25 it y of d type d type 00:00: [place] [address] Medical Branch 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 nivers renal renal 4-25 ity of anomaly anomaly 00:00: [address] Branch Multiparit Multiparit Disease Active U nivers y y 4-25 ity of 00:00: [place] [facility] Status Status Disease Active Univers post tubal post tubal 4-25 it y of ligation ligation 00:00: [place] [facility] Boil of Boil of Disease Active Univers buttock buttock 4-22 ity of 00:00: [place] [facility] History of History of Disease Active 2017-07 Overview : Univers abnormal abnormal 2- Formattin ity of cervical cervical 00:00: g of this [place] as Pap smear Pap smear 00 note [facility] mariola might be Branch different from the original. Followed by Dr. Horner for all paps, just seen early May for last follow up with normal pap in 05/2018 History of History of Disease Active 2017-07 Overview : Univers kidney kidney 08-13 Formattin ity of disease disease 00:00: g of this [place] 00 note Medical might be Branch different from the original. H/O renal surgery as a child, reports left kidney with 80% function, recurrent kidney stones, last requiring surgery in 2015, h/o recurrent UTI in previous pregnanci es Allergies, Adverse Reactions, Alerts Allergy Allergy Status Severity Reaction(s) Onset Inactive Treating Comm ents Source Name Type Date Date Clinician No Known Propensi Active Univer s Allergie ty to 2-06 ity of s adverse 00:00: [place] reaction 00 Medical s Branch NO KNOWN Drug Active Univers ALLERGIE Class 2-06 ity of S 00:00: [place] 00 Medical Branch Social History Social Habit Start Date Stop Date Quantity Comments Source History of Cigarette Smoker Universi ty of tobacco use [facility] Exposure to Not sure University of SARS-CoV-2 [place] Medical (event) Branch Alcohol intake 2019-03-07 2019-03-07 Current University of 00:00:00 00:00:00 non-drinker of [facility] alcohol (finding) Branch Tobacco use and 2018-06-12 2018-06-12 Never used Universit y of exposure 00:00:00 00:00:00 [facility] Sex Ass[birth year] At [birth year] Universit y of 00:00:00 00:00:00 [facility] Smoking Status Start Date Stop Date Source Former smoker 2018-06-12 00:00:00 2018-06-12 00:00:00 [facility] Medications Ordered Filled Start Stop Current Ordering Indication Dosage Frequency Signature Comments Components Source Medication Medication Date Date Medication? Clinician (SIG) Name Name naproxen 2020-07 Yes [id number] 500mg Take 1 Un quintin (NAPROSYN) 0-27 tablet by ity of 500 mg 00:00: mouth 2 [place] tablet 00 (two) Medical times [place] daily with meals. SERTraline Yes 50mg Take 50 mg U nivers (ZOLOFT) 50 8-29 by mouth ity of mg tablet 13:26: daily. [address] Immunizations Ordered Filled Immunization Date Status Comments Sour e Immunization Name Name TDAP (ADACEL) 2018-11-15 Completed [facility] VACCINE 00:00:00 [facility] Vital Signs Vital Name Observation Time Observation Value Comments Source Systolic blood 2021-05-05 20:52:00 133 mm[Hg] [facility] Diastolic blood 2021-05-05 20:52:00 99 mm[Hg] [facility] Heart rate 2021-05-05 20:52:00 79 /min [facility] Body temperature 2021-05-05 20:52:00 36.94 Cari [facility] Respiratory rate 2021-05-05 20:52:00 14 /min [facility] Body height 2021-05-05 20:52:00 152.4 cm [facility] Body weight 2021-05-05 20:52:00 79.833 kg [facility] BMI 2021-05-05 20:52:00 34.37 kg/m2 [facility] Oxygen saturation in 2021-05-05 20:52:00 100 /min [facility] Arterial blood by [facility] Pulse oximetry Branch Procedures Procedure Date / Time Performed Performing Clinician Charlie e POCT TEST 2021-05-05 21:19:00 Kelly Hitchcock [facility] LIPASE 2021-05-05 21:17:00 Kelly Hitchcock [place] [facility] COMP. METABOLIC PANEL 2021-05-05 21:17:00 Kelly Hitchcock [facility] ([id number]) Medical Branch CBC WITH DIFF 2021-05-05 21:17:00 Kelly Hicthcock [facility] URINALYSIS 2021-05-05 21:17:00 Kelly Hitchcock [place] [facility] CONSENT/REFUSAL FOR 2021-05-05 20:49:40 Doctor Unassigned, No [facility] DIAGNOSIS AND Name Medical Branch TREATMENT NOTICE OF PRIVACY 2021-05-05 20:49:18 Doctor Unassigned, No [facility] PRACTICES Name Medical Branch Encounters Start End Encounter Admission Attending Care Care Encounter Source Date/Time Date/Time Type Type Clinicians Facility Department ID 2021-05-11 Emergency [facility] [id number] Univers 10:16:26 ity [facility] 2021-05-05 2021-05-05 Emergency [facility] [id number] Univers 15:53:00 17:52:00 Kelly Guerin [id number] i [facility] [id number] [facility] [id number] [place] [address] Branch 2019-09-17 2019-09-20 Inpatient [place] [id number] [address] [place] 00:00:00 00:00:00 ILAN Landaverde Method i 2019-03-07 2019-03-07 Office [facility] [id number] 12:57:19 13:12:19 Visit Zoe [place] REGULATORY COMPLIANCE COORDINATOR [id number] [facility] 4.2.7.2.686 MATERNAL [id number] & CHILD [address] [place] [address] Orders Doctor SENAIT [id number] 00:00:00 00:00:00 Only UnassERIKA gama [id number] [place] [facility] [id number] Results Test Description Test Time Test Comments Results Result Comments Source COMP. METABOLIC PANEL (39883) 2021-05-05 21:38:03 Test Item Value Reference Range Interpretation Comme nts NA (test code = 2105563348) 137 mmol/L 135-145 K (test code = 3273724780) 4.0 mmol/L 3.5-5.0 CL (test code = 7092063843) 105 mmol/L 98-108 CO2 TOTAL (test code = 29 mmol/L 23-31 5200945944) AGAP (test code = 1864914142) 2-16 BUN (test code = 0627329990) 11 mg/dL 7-23 GLUCOSE (test code = 0736447566) 100 mg/dL 70-110 CREATININE (test code = 0.58 mg/dL 0.50-1.04 0610863898) TOTAL BILI (test code = 0.4 mg/dL 0.1-1.6 2353628205) CALCIUM (test code = 9170533120) 9.5 mg/dL 8.6-10.6 T PROTEIN (test code = 6.9 g/dL 6.3-8.2 4752063702) ALBUMIN (test code = 7504135741) 4.1 g/dL 3.5-5.0 ALK PHOS (test code = 0093183576) 53 U/L 34-122 ALTv (test code = 1742-6) 35 U/L 5-35 AST(SGOT) (test code = 32 U/L 13-40 2695868195) eGFR (test code = 2662960846) mL/min/1.73m2 LAURA (test code = LAURA) Association of Glomerular Filtration Rate (GFR) and Staging of Kidney Disease* + +--------- + ----+| GFR (mL/min/1.73 m2) ?| With Kidney Damage ?| ?Without Kidney Damage+ +--- + +| ?>90 ?| ?Stage one ?| ? Normal ?+ +-------- + -----+| ?60-89 ?| ?Stage two ?| ? Decreased GFR ? + +--------- + ----+| ?30-59 ?| ?Stage three ?| ? Stage three ? + +--------- + ----+| ?15-29 ?| ?Stage four ? | ? Stage four ?+ +-------- + -----+| ?<15 (or dialysis) ? ?| ?Stage five ? | ? Stage five ?+ +-------- + -----+ *Each stage assumes the associated GFR level has been in effect for at least three months. ?Stages 1 to 5, with or without kidney disease, indicate chronic kidney disease. Notes: Determination of stages one and two (with eGFR >59mL/min/1.73 m2) requires estimation of kidney damage for at least three months as defined by structural or functional abnormalities of the kidney, manifested by either:Pathological abnormalities or Markers of kidney damage (including abnormalities in the composition of the blood or urine or abnormalities in imaging tests). [facility] [place] [facility]37[facility]42 Test Item Value Reference Range Interpretation Comments LIPASE (test code = 5846441129) 131 U/L 0-220 Lab Interpretation (test code = Normal 86678-2) [facility] [place] [facility] WITH [id number] 21:27:00 Test Item Value Reference Range Interpretation Comments WBC (test code = See_Comment [Automated message] 3790-2) The system [employer] generated this result transmitted ref erence range: 4.30 - 1 1.10 10*3/?L. The re ference range was not u sed to interpret this result as normal/abnor mal. RBC (test code = See_Comment [Automated message] 749-8) The system [employer] generated this result transmitted ref erence range: 3.93 - 5 .25 10*6/?L. The re ference range was not u sed to interpret this result as normal/abnor mal. HGB (test code = 13.8 g/dL 11.6-15.0 718-7) HCT (test code = 40.6 % 35.7-45.2 4544-3) MCV (test code = 88.8 fL 80.6-95.5 787-2) MCH (test code = 30.2 pg 25.9-32.8 785-6) MCHC (test code = 34.0 g/dL 31.6-35.1 786-4) RDW-SD (test code 41.2 fL 39.0-49.9 = 44949-8) RDW-CV (test code 12.8 % 12.0-15.5 = 788-0) PLT (test code = See_Comment [Automated message] 155-3) The system whic h generated this result transmitted ref erence range: 166 - 35 8 10*3/?L. The re ference range was not u sed to interpret this result as normal/abnor mal. MPV (test code = 10.1 fL 9.5-12.9 87709-4) NRBC/100 WBC (test See_Comment [Automat ed message] code = 1082426868) The syste m which generated this result transmitted ref erence range: 0.0 - 10 .0 /100 WBCs. The refer ence range was not u sed to interpret this result as normal/abnor mal. NRBC x10^3 (test <0.01 See_Comment [Automated message] code = 1044291551) The syste m which generated this result transmitted ref erence range: 10*3/?L. The reference range was not used to interpr et this result as normal/abnormal . GRAN MAT (NEUT) % 62.4 % (test code = 770-8) IMM GRAN % (test 0.60 % code = 6193685963) LYMPH % (test code 27.3 % = 736-9) MONO % (test code 6.1 % = 5905-5) EOS % (test code = 2.9 % 713-8) BASO % (test code 0.7 % = 706-2) GRAN MAT 6.13 10*3/uL 1.88-7.09 x10^3(ANC) (test code = 6924613864) IMM GRAN x10^3 0.06 10*3/uL 0.00-0.06 (test code = 8571410054) LYMPH x10^3 (test 2.69 10*3/uL 1.32-3.29 code = 731-0) MONO x10^3 (test 0.60 10*3/uL 0.33-0.92 code = 742-7) EOS x10^3 (test 0.29 10*3/uL 0.03-0.39 code = 711-2) BASO x10^3 (test 0.07 10*3/uL 0.01-0.07 code = 704-7) [facility] [place] [facility] [id number] 21:19:00 Test Item Value Reference Range Interpretation Comments POCT PREG (test code = 1605) negative POCT PREG LOT # (test code = 3575) [id number] POCT PREG TEST DATE (test 2022-07-09 code = 3576) Lab Interpretation (test code = Normal 10749-9) [facility] [place] [facility]"
== END 2021-05-19 08:12 | disposition home or self-care (01) ==
LOC: ER 01:18
DX: R10.9 Unspecified abdominal pain (principal); R10.2 Pelvic and perineal pain
CPT/HCPCS: 96361; 85025; 80048; 36415; 81025; 80076; 81003; 83690; 74177; 76830; 96375; 96374; 99284; Q9967; J7030; J2405

== ENCOUNTER 2021-05-26 10:33 | Inpatient (IN) | payer BC ==
--- OUTSIDE RECORDS SUMMARY | 2021-05-26 12:40 | XMS REPORT | Continuity of Care Document ---
:1980 Author Organization [facility] t Address [address] [place] [address] Care Team Providers Name Role Phone Reshma Duncan NP Primary Care Physician Coretta PAC, S Attending Clinician CLEWING Attending Clinician Unavailable Gabriele SNEEDP, Jacinda Attending Clinician Doctor Unassigned, Name Attending Clinician Unavailable CLEWING Admitting Clinician Unavailable Payers Payer Name Policy Type Policy Number Effective Date Expiration Date S blancaria [facility] [id number] 2017 00:00:00 [place] [facility] [id number] 2018 HEALTH 00:00:00 Advance Directives Directive Decision Effective Termination Comments Source Date Date Healthcare Agents on N/A 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 nivers renal renal 4-25 ity of anomaly anomaly 00:00: [place] 00 [facility] Multiparit Multiparit Disease Active U nivers y y 4-25 ity of 00:00: [place] [facility] Status Status Disease Active Univers post tubal post tubal 4-25 it y of ligation ligation 00:00: [place] [facility] Boil of Boil of Disease Active Univers buttock buttock 4-22 ity of 00:00: [place] [facility] History of History of Disease Active 2017-07 Overview : Univers abnormal abnormal 2 Formatt[place] ity of cervical cervical 00:00: g of this [place] as Pap smear Pap smear 00 note [facility] might be Branch different from the original. Followed by Dr. Horner for all paps, just seen early May for last follow up with normal pap in 05/2018 History of History of Disease Active 2017-07 Overview : Univers kidney kidney 08-13 Formattin ity of disease disease 00:00: g of this [place] note Medical might be Branch different from [...] Cigarette Smoker Universi ty of tobacco use [facility] Exposure to Not sure University SARS-CoV-2 [place] Medical (event) Branch Alcohol intake 2019-03-07 2019-03-07 Current University of 00:00:00 00:00:00 non-drinker of [facility] alcohol (finding) Branch Tobacco use and 2018-06-12 2018-06-12 Never used Universit y of exposure 00:00:00 00:00:00 [facility] Sex Assigned At [birth year] Universit y of 00:00:00 00:00:00 [facility] Smoking Status Start Date Stop Date Source Former smoker 2018-06-12 00:00:00 2018-06-12 00:00:00 [facility] Medications Ordered Filled Start Stop Current Ordering Indication Dosage Frequency Signature Comments Components Source Medication Medication Date Date Medication? Clinician (SIG) Name Name naproxen 2020-07 Yes [id number] 500mg Take 1 Un quintin (NAPROSYN) 0-27 tablet by ity of 500 mg 00:00: mouth 2 [place] tablet 00 (two) Medical times [place] daily with meals. SERTraline Yes 50mg Take 50 mg U nivers (ZOLOFT) 50 8-29 by mouth ity of mg tablet 13:26: daily. [address] Immunizations Ordered Filled Immunization Date Status Comments Sour e Immunization Name Name TDAP (ADACEL) 2018-11-15 Completed [facility] VACCINE 00:00:00 [facility] Vital Signs Vital Name Observation Time Observation Value Comments Source Systolic blood 2021-05-05 20:52:00 133 mm[Hg] [facility] pressure [facility] Diastolic blood 2021-05-05 20:52:00 99 mm[Hg] [facility] Heart rate 2021-05-05 20:52:00 79 /min [facility] Body temperature 2021-05-05 20:52:00 36.94 Cari [facility] Respiratory rate 2021-05-05 20:52:00 14 /min [facility] Body height 2021-05-05 20:52:[address] [facility] Body weight 2021-05-05 20:52:[address] [facility] BMI 2021-05-05 20:52:00 34.37 kg/m2 [facility] Oxygen saturation in 2021-05-05 20:52:00 100 /min [facility] Arterial blood by [facility] Pulse oximetry [place] Procedures Procedure Date / Time Performed Performing Clinician Charlie e POCT TEST 2021-05-05 21:19:[address] [facility] LIPASE 2021-05-05 21:17:00 [place]cock [place] [facility] COMP. METABOLIC PANEL 2021-05-05 21:17:[address] [facility] ([id number]) Medical Branch CBC WITH DIFF 2021-05-05 21:17:00 Kelly [place]cock [place] [facility] URINALYSIS 2021-05-05 21:17:00 Kelly Hitchcock [facility] CONSENT/REFUSAL FOR 2021-05-05 20:49:40 Doctor Unassigned, [facility] AND Name Medical Branch TREATMENT NOTICE OF PRIVACY 2021-05-05 20:49:18 Doctor Unassigned, No [facility] PRACTICES Name Medical Branch Encounters Start End Encounter Admission Attending Care Care Encounter Source Date/Time Date/Time Type Type Clinicians Facility Department ID 2021-05-11 Emergency [facility] [id number] Univers 10:16:26 ity [facility] 2021-05-05 2021-05-05 [facility] [id number] [facility] 15:53:00 17:52:00 Kelly Guerin [id number] i [facility] [id number] [facility] [id number] [place] [id number] Branch 2019-09-17 2019-09-20 Inpatient [place] [id number] [address] [place] [address] 00:00:00 00:00:00 ILAN Landaverde Method i 2019-03-07 2019-03-07 Office [facility] [id number] 12:57:19 13:12:19 Visit Zoe [place] [employer] [id number] [facility] [id number] MATERNAL [id number] & CHILD [address] [place] [address] Orders Doctor SENAIT [id number] 00:00:00 00:00:00 Only UnassERIKA gama 350.1.13.10 [place] [facility] [id number] Results Test Description Test Time Test Comments Results Result Comments Source COMP. METABOLIC PANEL (04127) 2021-05-05 21:38:03 Test Item Value Reference Range Interpretation Comme nts NA (test code = 3743416908) 137 mmol/L 135-145 K (test code = 7896980990) 4.0 mmol/L 3.5-5.0 CL (test code = 7205875754) 105 mmol/L 98-108 CO2 TOTAL (test code = 29 mmol/L 23-31 5307970532) AGAP (test code = 8712442322) 2-16 BUN (test code = 6386297505) 11 mg/dL 7-23 GLUCOSE (test code = 6557360824) 100 mg/dL 70-110 CREATININE (test code = 0.58 mg/dL 0.50-1.04 1117649699) TOTAL BILI (test code = 0.4 mg/dL 0.1-1.4 5254267938) CALCIUM (test code = 2595868399) 9.5 mg/dL 8.6-10.6 T PROTEIN (test code = 6.9 g/dL 6.3-8.2 7636693946) ALBUMIN (test code = 2738762594) 4.1 g/dL 3.5-5.0 ALK PHOS (test code = 7275722109) 53 U/L 34-122 ALTv (test code = 1742-6) 35 U/L 5-35 AST(SGOT) (test code = 32 U/L 13-40 7171466011) eGFR (test code = 8899435532) mL/min/1.73m2 LAURA (test code = LAURA) Association [...] or urine or abnormalities in imaging tests). [facility] Test Item Value Reference Range Interpretation Comments LIPASE (test code = 8545129826) 131 U/L 0-220 Lab Interpretation (test code = Normal 58323-7) [facility] WITH [id number] 21:27:00 Test Item Value Reference Range Interpretation Comments WBC (test code = See_Comment [Automated message] 9432-2) The system [employer] generated this result transmitted ref erence range: 4.30 - 1 1.10 10*3/?L. The re ference range was not u sed to interpret this result as normal/abnor mal. RBC (test code = See_Comment [Automated message] 009-8) The system [employer] generated this result transmitted ref erence range: [...] RDW-SD (test code 41.2 fL 39.0-49.9 = 65042-6) RDW-CV (test code 12.8 % 12.0-15.5 = 788-0) PLT (test code = See_Comment [Automated message] 147-3) The system whic h generated this result transmitted ref erence range: 166 - 35 8 10*3/?L. The re ference range was not u sed to interpret this result as normal/abnor mal. MPV (test code = 10.1 fL 9.5-12.9 30012-8) NRBC/100 WBC (test See_Comment [Automat ed message] code = 8124682199) The syste m which generated this result transmitted ref erence range: 0.0 - 10 .0 /100 WBCs. The refer ence range was not u sed to interpret this result as normal/abnor mal. NRBC x10^3 (test <0.01 See_Comment [Automated message] code = 3572563789) The syste m which generated this result transmitted ref erence range: 10*3/?L. The reference range was not used to interpr et this result as normal/abnormal . GRAN MAT (NEUT) % 62.4 % (test code = 770-8) IMM GRAN % (test 0.60 % code = 2710417521) LYMPH % (test code 27.3 % = 736-9) MONO % (test code 6.1 % = 5905-5) EOS % (test code = 2.9 % 713-8) BASO % (test code 0.7 % = 706-2) GRAN MAT 6.13 10*3/uL 1.88-7.09 x10^3(ANC) (test code = 9188260870) IMM GRAN x10^3 0.06 10*3/uL 0.00-0.06 (test code = 3499536715) LYMPH x10^3 (test 2.69 10*3/uL 1.32-3.29 code = 731-0) MONO x10^3 (test 0.60 10*3/uL 0.33-0.92 code = 742-7) EOS x10^3 (test 0.29 10*3/uL 0.03-0.39 code = 711-2) BASO x10^3 (test 0.07 10*3/uL 0.01-0.07 code = 704-7) [facility] [id number] 21:19:00 Test Item Value Reference Range Interpretation Comments POCT PREG (test code = 1605) negative POCT PREG LOT # (test code = 3575) [id number] POCT PREG TEST DATE (test 2022-07-09 code = 3576) Lab Interpretation (test code = Normal 58698-9) [facility]"
[2021-05-26 13:41] VITALS: BMI 33.4
[2021-05-26] MEDS ORDERED: CODEINE 30MG/APAP 300MG TAB PO PRN ×2 (13:45→13:46)
[2021-05-26 14:28] LABS: Absolute Lymphocytes (CBC) 2.4 K/uL (0.7-4.9); Basophils % 0.8 % (0-1.3); Hematocrit 42.2 % (36.0-45.0); Lymphocytes % 27.2 % (15.3-44.8); MPV 8.2 fL (7.6-11.3)
[2021-05-26 14:42] LABS: Potassium 3.6 mmol/L (3.5-5.1)
[2021-05-26] MEDS: METRONIDAZOLE 500mg IVPB 500 MG/100 ML BAG IV SCH ×2 (15:04→23:28)
[2021-05-26] MEDS: AMPICILLIN/SULBACT 3 GM in NA CHLORIDE 0.9% 100 ML IVPB SCH ×2 (15:05→22:53)
[2021-05-26] MEDS: Ringers Lactate 1,000 ML IV SCH (15:30)
[2021-05-26] MEDS ORDERED: INFLUENZA VACCINE (for 6+ mo) 0.5 ML DOSE IMVAC ONE (17:00)
[2021-05-27] MEDS: METRONIDAZOLE 500mg IVPB 500 MG/100 ML BAG IV SCH ×3 (06:00→14:00)
[2021-05-27] MEDS: AMPICILLIN/SULBACT 3 GM in NA CHLORIDE 0.9% 100 ML IVPB SCH (06:35)
[2021-05-27] MEDS: Ringers Lactate 1,000 ML IV SCH ×3 (06:35→16:54)
[2021-05-27] MEDS ORDERED: AMPICILLIN/SULBACT 3 GM in NA CHLORIDE 0.9% 100 ML IVPB SCH (13:00)
[2021-05-27] MEDS ORDERED: LIDOCAINE 1% W/EPI 1:100,000 MDV 20 ML VIAL ONE (16:27)
[2021-05-27] MEDS ORDERED: NA CHLORIDE 0.9% 1,000 ML ONE (16:27)
[2021-05-27] MEDS ORDERED: LIDOCAINE 1% MPF 5 ML VIAL ONE ×2 (16:33→16:48)
[2021-05-27] MEDS ORDERED: FENTANYL CITR 100 MCG/2 ML ONE ×2 (16:33→16:49)
[2021-05-27] MEDS ORDERED: MIDAZOLAM HCL 2 MG/2 ML INJ ONE (16:33)
[2021-05-27] MEDS ORDERED: propofoL 200 MG/20 ML VIAL IV ONE ×2 (16:33→16:48)
[2021-05-27] MEDS ORDERED: ONDANSETRON 4 MG/2 ML VIAL ONE ×2 (16:34→17:13)
[2021-05-27] MEDS ORDERED: SILVER NITRATE 1 APPL TOP ONE (16:37)
[2021-05-27] MEDS ORDERED: Ringers Lactate 1,000 ML IV ONE (16:51)
[2021-05-27] MEDS ORDERED: KETOROLAC 30 MG/ML INJ ONE (17:13)
[2021-05-27] MEDS ORDERED: dexAMETHasone 10 MG/ML VIAL ONE (17:14)
[2021-05-27] MEDS ORDERED: PROMETHAZINE INJ 25 MG/ML AMP IV PRN (17:31)
[2021-05-27] MEDS ORDERED: HYDROCODONE/APAP 5/325 MG TAB PO PRN (17:31)
--- NOTE | 2021-05-27 17:37 | P.BOP ---
Preoperative diagnosis: pelvic pain, hematometra, endometritis Postoperative diagnosis: same Primary procedure: USN guided drainage of hematometra, Hysteroscopy d/c Estimated blood loss: min Specimen: EMC Findings: hematometra drained under USN guidance, cervical stenosis Anesthesia: General Complications: None Transferred to: Recovery Room Condition: Good
[2021-05-27 17:45] VITALS: O2SAT 100
[2021-05-27] MEDS ORDERED: IBUPROFEN 600 MG TAB PO PRN (17:46)
--- NOTE | 2021-05-27 17:56 | RAD REPORT ---
EXAM DESCRIPTION: US - Ultrasound Intraop - 05/27/2021 5:34 pm CLINICAL HISTORY: HYSTER. COMPARISON: TRANSVAG OB dated 10/30/2015; Transvaginal Study Probe dated 05/19/2021; Abdomen Pelvis W Contrast dated 05/19/2021 FINDINGS: Intraoperative of ultrasound performed showing some fluid within the endometrial canal. IMPRESSION: Intraoperative ultrasound demonstrating fluid in the endometrial canal. The volume of fl uid is decreased since 05/19/2021
[2021-05-27 18:22] VITALS: BP 127/91; TEMP 97.7
[2021-05-27] MEDS ORDERED: metroNIDAZOLE 500 MG TABLET PO SCH (21:00)
[2021-05-27] MEDS ORDERED: AMOX/K CLAV 875 MG TAB PO SCH (21:00)
--- NOTE | 2021-05-29 09:59 | DS ---
Date of Discharge: 05/27/2021 Admitting Diagnoses: Endometritis, hematometra, pelvic pain. Discharge Diagnoses: Endometritis, hematometra, pelvic pain. Hospital Stay: The patient was electively admitted to the hospital as she was having significant pelvic pain. Had ER visit. Outpatient antibiotics had failed to resolve her pain. Suspicion for endometritis was very high. She denied any fevers or chills; however, unable to walk. Denied any urinary or bowel symptoms. She had no other upper respiratory symptoms. Rest of the review of systems was negative. Gynecologic History: The patient is a 5, para 4-0-1-4 with all 4 normal vaginal deliveries. She had an IUD for management of her menorrhagia, which failed until last year. She was sampled and the biopsy was negative. Then, endometrial ablation was performed in July 2020 in the office. After that, she had not visited, although she has been doing well with the amenorrhea. No significant pain. However, sudden onset pain had brought her to the emergency room and has ultrasound there, had suspected fluid collection in the uterus. She was referred back to us by her primary assistant teacher primary. The patient was seen on the same day and she was given oral antibiotics after which she failed. She was seen back in the office and was sent over to the hospital for admission for IV antibiotics. Once the antibiotics were started, she was also kept n.p.o. for procedures for drainage of her hematometra. On the hospital stay, she was given Unasyn 3 g IV q.6, then Flagyl 500 mg IV q.8. After 3 doses of Flagyl and 4 doses of Unasyn, she was feeling much better. Her pain has almost fully resolved. She was afebrile. Blood count was normal. WBC count was normal. Abdomen soft, nondistended, minimally tender in the lower quadrants. No rebound. So, she was taken back for drainage. After the surgery was performed as dictated hysteroscopy, D and C, drainage of hematometra sampling, she was brought back, recovered and then as her pain was well controlled, she was discharged home with Augmentin 875 b.i.d. and Flagyl 500 mg t.i.d. for another 12 days. Once this was done, the plan will be to perform a hysterectomy. She has instructions to call to make the followup appointment. She has the surgery date booked. SAMANTA Voice ID: [id number] Report ID: [id number] CLARITZA
--- NOTE | 2021-05-31 12:40 | OP ---
Date of Procedure: 05/27/2021 Surgeon: Keily Horner MD Preoperative Diagnoses: Pelvic pain, hematometra, endometritis. Postoperative Diagnoses: Pelvic pain, hematometra, endometritis. Procedures Performed: Ultrasound-guided drainage of hematometra, hysteroscopy, dilation and curettag e. Anesthesia: General with LMA. Specimens: Endometrial curettings. Estimated Blood Loss: Minimal. Complications: No complications. Drains: No drains. Condition: Stable. Findings: Hematometra drain under ultrasound guidance, copious amount of dark old blood was seen, no pyometra was noted. Cervical stenosis was noted, which was dilated under ultrasound guidance. On u ltrasound, there was a clear enlarged uterus with dense, but hyperechoic tissues, which was most like ly consistent with blood inside the cavity. Once this was well visualized under ultrasound guidance of the cervix, the cervical canal, and uterine canal were lined up and the camera was used to enter t he endometrial cavity. Once it was entered all the bloody fluid was drained, at least 80 to 100 mL h ad drained out. No intracavitary abnormal tissue was noted; however, the visualization due to the staining of the endometrium line with dark blood hemosiderin deposits. Endometrial curettage was done. The patient is a 40-year-old female, who is 10 months status post an ablation for menorrhagia present ed with sudden onset pelvic pain was in the ER and then seen in the office. She was started on oral antibiotics and had a slight elevated white count at the beginning and significant pain with the narc otics and after 3 days of oral antibiotic, still had significant pain, although the white count was d own. So, I counseled her on the need for IV antibiotics. She was admitted to the hospital. After 2 4 hours of IV antibiotics, she was brought to the OR to open up and drain her hematometra to give her pain relief. Once that was done, all the tissue sampling was to be done, so she was consented and t tor to the OR. Description Of Procedure: After informed consent was verified, she was brought back to the OR. Her mother consented. After appropriate counseling, she was brought back . She was placed in a supine fashion on the operating table. General anesthesia was given. Placed in a dorsal lithotomy position using Gera stirrups. Vulva, vagina, and perineum prepped and draped in a sterile fashion. Speculum used to open the vaginal canal, exposing the cervix. Anterior lip grasp ed with 2 Allis clamps. Diagnostic SlimLine hysteroscope was taken under direct visualization with t he pelvic ultrasound. The cervical canal was lined up into the hemometra was noted in the fascial plane. Once this was lined up, careful entry was achieved into the uterine cavity. Once th is was done, the fluid was drained. After drainage. This was then ensured with ultrasou nd as well. Then we made sure that I was able to visualize the canal as best as possible and the sco pe was removed and curettage was performed with a #1 curette. This was handed off for permanent path ology. Instrument, needle, and sponge counts were correct. The patient was recovered from anesthesi a and taken to PACU in stable condition. EBL was minimal. will be discharged home today. Other findings were discussed with the mom. Ordered antibiotics to go home with. NASRIN/NEELAM Voice ID: [id number] Report ID: [id number]
== END 2021-05-27 19:56 | disposition home or self-care (01) | DRG 743 ==
LOC: 2ND-WC 12:36
PROVIDERS: ADMIT Obstetrics & Gynecology; ATTEND Obstetrics & Gynecology
PROC: 0UDB7ZX Extraction of Endometrium, Via Natural or Artificial Opening, Diagnostic (ICD-10-PCS; 2021-05-27)
PROC: 0U9 Female Reproductive System, Drainage (ICD-10-PCS; principal; 2021-05-27 14:15)
DX: N85.7 Hematometra (principal); N71.9 Inflammatory disease of uterus, unspecified; Z20.822 Contact with and (suspected) exposure to COVID-19
CPT/HCPCS: 36415; 76998; 80048; 84703; 85025; 86850; 86900; 86901; 88305; J0295; J1100; J2250; J2405; J2704; J3010; J7030; J7120; U0003